=== PATIENT | female | born 1960 | race Caucasian/White ===

== ENCOUNTER 2018-09-10 15:23 | Observation (INO) | payer OTHER ==
[~2018-09-10] VITALS: Ht 170.2 cm; Wt 63.5 kg
[~2018-09-10 15:23] MED LIST: ABILIFY 2 MG; ALPR.5; ALPR.5 PO; AMIT75 PO; ASPI81CH PO; ASPI81EC; ATEN25; ATEN50; ATEN50 PO; Abilify2 MG PO; B Complex1 EAC2 PO; BENAML10/2; BUSP10; BUSP10 PO; CYCL10 PO; DICL75ER PO; DOCSEN PO; DOCUSATE; DULO30 PO; ERGO50000; FERR325 PO; FERROUS SULFATE 324; FLUO10; FLUO20 PO; FURO40; FURO40 PO; GABA300 PO; HYDACE10B; LACT10SY; LACT10SY PO; LEVE500; MAGCHL64ER PO; MELO7.5 PO; METO50; MULVITB&C; MULVITMINE; NITR100 PO; NORT10; NORT25 PO; NORT50 PO; NORTRIPTYLINE 50 MG; OXYC10TA19; SENNA; SERT100; SPIHYD; SPIR25 PO; SPIR50; TRAM50 PO; TRAZ50 PO; ZOLP10; ZOLP10 PO
[2018-09-10 17:08] LABS: BASOPHILS ABSOLUTE AUTO 0.03 K/mm3 (0.00-0.23); BASOPHILS PERCENT AUTO 0 % (0-2); EOSINOPHILS ABSOLUTE AUTO 0.03 K/mm3 (0.00-0.68); EOSINOPHILS PERCENT AUTO 0 % (0-6); Hematocrit 48.8 % (33.0-51.0); Hemoglobin 16.6 g/dL (11.5-16.0); IMMATURE GRAN ABSOLUTE AUTO 0.02 K/mm3 (0.00-0.10); IMMATURE GRAN PERCENT AUTO 0 % (0-1); LYMPHOCYTES ABSOLUTE AUTO 1.65 K/mm3 (0.84-5.20); LYMPHOCYTES PERCENT AUTO 22 % (21-46); MONOCYTES ABSOLUTE AUTO 0.38 K/mm3 (0.16-1.47); MONOCYTES PERCENT AUTO 5 % (4-13); Mean Corpuscular Volume 88 fL (80-100); Mean Platelet Volume 10.2 fL (9.1-12.4); NEUTROPHILS ABSOLUTE AUTO 5.32 K/mm3 (1.96-9.15); NEUTROPHILS PERCENT AUTO 72 % (41-73); Platelet Count 214 K/mm3 (150-400); RDW Coefficient Variation 12.5 % (11.7-14.2); RDW Standard Deviation 40.7 fL (35.1-46.3); Red Blood Cell Count 5.53 M/mm3 (3.80-5.20); White Blood Cell Count 7.43 K/mm3 (4.00-11.30)
[2018-09-10 17:28] LABS: Alanine Aminotransfer (ALT/SGP 29 U/L (12-78); Albumin, Blood 4.3 g/dL (3.4-5.0); Alk Phos 68 U/L (50-136); Anion Gap 14 mmol/L (6-16); Aspartate Aminotrans (AST/SGOT 28 U/L (12-37); Bilirubin, Total 1.1 mg/dL (0.1-1.0); Blood Urea Nitrogen 15 mg/dL (8-24); Bun/Creatinine Ratio 25.7 (12.0-20.0); CO2, Blood 22 mmol/L (21-32); Calcium, Blood 9.8 mg/dL (8.5-10.1); Chloride, Blood 99 mmol/L (98-108); Creatinine, Blood 0.58 mg/dL (0.40-1.00); Ethanol (Alcohol), Blood, Med <3 mg/dL; Globulin, Blood 4.5 g/dL (2.2-4.0); Glomerular Filtration Rate >60 (60-); Glucose, Blood 81 mg/dL (70-99); Potassium, Blood 3.4 mmol/L (3.5-5.5); Salicylate 8.5 mg/dL (2.8-20.0); Sodium, Blood 135 mmol/L (136-145); Total Protein, Blood 8.8 g/dL (6.4-8.2)
[2018-09-10 17:33] LABS: Thyroid Stimulating Hormone 0.342 uIU/mL (0.360-4.800)
[2018-09-10 17:41] LABS: Acetaminophen, Random <2.0 ug/mL (10.0-30.0)
[2018-09-11 06:50] LABS: Source, Urine Voided
[2018-09-11 06:54] LABS: Blood, Urine 2+ (Neg); Glucose Qualitative, Urine Neg (Neg); Ketones, Urine 4+ (Neg); Leukocyte Esterase, Urine 3+ (Neg); Nitrite, Urine Neg (Neg); Protein, Urine 2+ (Neg); Urobilinogen, Urine 3+ (Normal); pH, Urine 6.5 (5.0-8.0)
[2018-09-11 06:59] LABS: Appearance, Urine Cloudy (Clear); Bacteria Many /hpf; Bilirubin, Urine 1+ (Neg); Color, Urine Amber (P-Yellow); Red Blood Cells, Urine 0-2 /hpf (0-2); Squamous Epithelial Cells Few /hpf (Few); White Blood Cells, Urine 50-100 /hpf (0-5)
[2018-09-11 07:05] LABS: U Amphetamine Screen Not Detected; U Barbituate Screen Not Detected; U Benzodiazapine Screen Not Detected; U Buprenorphine Screen Not Detected; U Cannabinoids Screen DETECTED; U Cocaine Screen Not Detected; U Methadone Screen Not Detected; U Methamphetamine Screen Not Detected; U Opiates Screen Not Detected; U Oxycodone Screen Not Detected; U Phencyclidine Screen Not Detected; U Propoxyphene Screen Not Detected
== END 2018-09-11 22:55 | disposition home or self-care (01) ==
LOC: ER 15:23 → EOR 15:24 → ER 09-11 16:44 → EOR 09-11 16:44
PROVIDERS: Emergency Medicine; ADMIT Emergency Medicine
DX: F33.2 Major depressive disorder, recurrent severe without psychotic features (principal); I10 Essential (primary) hypertension; F17.210 Nicotine dependence, cigarettes, uncomplicated; R00.0 Tachycardia, unspecified; Z88.0 Allergy status to penicillin; Z88.5 Allergy status to narcotic agent; Z79.899 Other long term (current) drug therapy; Z86.73 Personal history of transient ischemic attack (TIA), and cerebral infarction without residual deficits; Z91.14 Patient's other noncompliance with medication regimen
CPT/HCPCS: 36415; 80053; 81001; 81025; 84439; 84443; 85025; 87077; 87086; 87186; 93005; 93010; 99285-25; G0378; G0480; Q3014

== ENCOUNTER 2018-11-24 11:57 | Inpatient (IN) | payer OTHER ==
[~2018-11-24] VITALS: Ht 170.2 cm; Wt 57.4 kg
[~2018-11-24 11:57] MED LIST changes: +ARIP10 PO; -Abilify2 MG PO; -METO50; +METO50 PO
[2018-11-24 13:02] LABS: BASOPHILS ABSOLUTE AUTO 0.01 K/mm3 (0.00-0.23); BASOPHILS PERCENT AUTO 0 % (0-2); EOSINOPHILS ABSOLUTE AUTO 0.01 K/mm3 (0.00-0.68); EOSINOPHILS PERCENT AUTO 0 % (0-6); Hematocrit 42.8 % (33.0-51.0); IMMATURE GRAN ABSOLUTE AUTO 0.02 K/mm3 (0.00-0.10); IMMATURE GRAN PERCENT AUTO 0 % (0-1); LYMPHOCYTES ABSOLUTE AUTO 0.69 K/mm3 (0.84-5.20); LYMPHOCYTES PERCENT AUTO 9 % (21-46); MONOCYTES ABSOLUTE AUTO 0.41 K/mm3 (0.16-1.47); MONOCYTES PERCENT AUTO 6 % (4-13); Mean Corpuscular HGB 30.7 pg (26.0-34.0); Mean Corpuscular Volume 88 fL (80-100); Mean Platelet Volume 10.9 fL (9.1-12.4); NEUTROPHILS ABSOLUTE AUTO 6.27 K/mm3 (1.96-9.15); NEUTROPHILS PERCENT AUTO 85 % (41-73); Platelet Count 152 K/mm3 (150-400); RDW Coefficient Variation 12.1 % (11.7-14.2); RDW Standard Deviation 39.2 fL (35.1-46.3); Red Blood Cell Count 4.88 M/mm3 (3.80-5.20); White Blood Cell Count 7.41 K/mm3 (4.00-11.30)
[2018-11-24 13:32] LABS: Alanine Aminotransfer (ALT/SGP 24 U/L (12-78); Albumin, Blood 3.9 g/dL (3.4-5.0); Alk Phos 54 U/L (50-136); Anion Gap 7 mmol/L (6-16); Aspartate Aminotrans (AST/SGOT 20 U/L (12-37); Bilirubin, Total 1.3 mg/dL (0.1-1.0); Blood Urea Nitrogen 15 mg/dL (8-24); Bun/Creatinine Ratio 18.6 (12.0-20.0); CO2, Blood 26 mmol/L (21-32); Calcium, Blood 9.4 mg/dL (8.5-10.1); Chloride, Blood 103 mmol/L (98-108); Creatinine, Blood 0.81 mg/dL (0.40-1.00); Globulin, Blood 3.9 g/dL (2.2-4.0); Glomerular Filtration Rate >60 (60-); Glucose, Blood 138 mg/dL (70-99); Potassium, Blood 3.5 mmol/L (3.5-5.5); Sodium, Blood 136 mmol/L (136-145); Total Protein, Blood 7.8 g/dL (6.4-8.2)
[2018-11-24] MEDS ORDERED: Prinivil10 MG PO (16:02)
[2018-11-24] MEDS ORDERED: ESCI10 PO (16:06)
[2018-11-24] MEDS ORDERED: TRAZ150T57 (16:07)
[2018-11-24] MEDS ORDERED: PRAV20 PO (16:08)
[2018-11-24 20:38] LABS: U Amphetamine Screen Not Detected; U Barbituate Screen Not Detected; U Benzodiazapine Screen Not Detected; U Buprenorphine Screen Not Detected; U Cannabinoids Screen DETECTED; U Cocaine Screen Not Detected; U Methadone Screen Not Detected; U Methamphetamine Screen Not Detected; U Opiates Screen Not Detected; U Oxycodone Screen Not Detected; U Phencyclidine Screen Not Detected; U Propoxyphene Screen Not Detected
--- NOTE | 2018-11-25 06:39 | NUR ---
SHIFT SUMMARY PT ADMITTED FOR LEFT FEMORAL NECK FX. HUMPHREY CONSULTED FOR POTENTIAL SURGERY TODAY. PT HAS AN 18G IN PLACE, NPO SINCE MIDNIGHT, SURGICAL PACKET STARTED ON CHART. JOHNSON PLACED UPON ADMISSION TO FLOOR AND UA SENT. URINE IS DARK, MAINTENENCE FLUIDS RUNNING. TELE WAS SINUS CHINEDU TO NSR OVERNIGHT. MEDICATED FOR PAIN PER EMAR. WILL CTM UNTIL PASS TO NEXT SHIFT.
[2018-11-25 07:45] LABS: BASOPHILS ABSOLUTE AUTO 0.02 K/mm3 (0.00-0.23); BASOPHILS PERCENT AUTO 0 % (0-2); EOSINOPHILS ABSOLUTE AUTO 0.12 K/mm3 (0.00-0.68); EOSINOPHILS PERCENT AUTO 2 % (0-6); Hematocrit 38.3 % (33.0-51.0); IMMATURE GRAN ABSOLUTE AUTO 0.01 K/mm3 (0.00-0.10); IMMATURE GRAN PERCENT AUTO 0 % (0-1); LYMPHOCYTES ABSOLUTE AUTO 1.49 K/mm3 (0.84-5.20); LYMPHOCYTES PERCENT AUTO 27 % (21-46); MONOCYTES ABSOLUTE AUTO 0.45 K/mm3 (0.16-1.47); MONOCYTES PERCENT AUTO 8 % (4-13); Mean Corpuscular HGB 29.8 pg (26.0-34.0); Mean Corpuscular HGB Conc 33.9 g/dL (31.5-36.5); Mean Corpuscular Volume 88 fL (80-100); Mean Platelet Volume 10.5 fL (9.1-12.4); NEUTROPHILS ABSOLUTE AUTO 3.49 K/mm3 (1.96-9.15); NEUTROPHILS PERCENT AUTO 62 % (41-73); Platelet Count 117 K/mm3 (150-400); RDW Coefficient Variation 12.4 % (11.7-14.2); RDW Standard Deviation 39.9 fL (35.1-46.3); Red Blood Cell Count 4.36 M/mm3 (3.80-5.20); White Blood Cell Count 5.58 K/mm3 (4.00-11.30)
[2018-11-25 08:02] LABS: Alanine Aminotransfer (ALT/SGP 20 U/L (12-78); Albumin, Blood 3.1 g/dL (3.4-5.0); Albumin/Globulin Ratio 0.9 (0.8-1.8); Alk Phos 44 U/L (50-136); Anion Gap 9 mmol/L (6-16); Aspartate Aminotrans (AST/SGOT 13 U/L (12-37); Bilirubin, Total 1.1 mg/dL (0.1-1.0); Blood Urea Nitrogen 12 mg/dL (8-24); Bun/Creatinine Ratio 20.3 (12.0-20.0); CO2, Blood 25 mmol/L (21-32); Calcium, Blood 8.6 mg/dL (8.5-10.1); Chloride, Blood 106 mmol/L (98-108); Creatinine, Blood 0.59 mg/dL (0.40-1.00); Globulin, Blood 3.4 g/dL (2.2-4.0); Glomerular Filtration Rate >60 (60-); Glucose, Blood 104 mg/dL (70-99); Potassium, Blood 3.2 mmol/L (3.5-5.5); Sodium, Blood 140 mmol/L (136-145); Total Protein, Blood 6.5 g/dL (6.4-8.2)
[2018-11-25 11:53] LABS: Source, Urine Catheter
[2018-11-25 12:01] LABS: Appearance, Urine Hazy (Clear); Blood, Urine 1+ (Neg); Color, Urine Amber (P-Yellow); Glucose Qualitative, Urine Neg (Neg); Ketones, Urine 1+ (Neg); Leukocyte Esterase, Urine 2+ (Neg); Nitrite, Urine Pos (Neg); Protein, Urine 2+ (Neg); Specific Gravity, Urine 1.015 (1.003-1.022); Urobilinogen, Urine 4+ (Normal); pH, Urine 6.5 (5.0-8.0)
[2018-11-25 12:11] LABS: Bilirubin, Urine 1+ (Neg)
[2018-11-25 12:13] LABS: Red Blood Cells, Urine 0-2 /hpf (0-2)
[2018-11-25 12:14] LABS: Bacteria Many /hpf; Squamous Epithelial Cells Few /hpf (Few)
[2018-11-25 12:55] LABS: Anion Gap 9 mmol/L (6-16); Blood Urea Nitrogen 10 mg/dL (8-24); CO2, Blood 25 mmol/L (21-32); Calcium, Blood 8.4 mg/dL (8.5-10.1); Chloride, Blood 106 mmol/L (98-108); Creatinine, Blood 0.59 mg/dL (0.40-1.00); Glomerular Filtration Rate >60 (60-); Glucose, Blood 129 mg/dL (70-99); Sodium, Blood 140 mmol/L (136-145)
--- NOTE | 2018-11-25 15:40 | NUR ---
PATIENT TO DAY SURGERY AT THIS TIME.
--- NOTE | 2018-11-25 15:43 | NUR ---
Patient confirms NPO status and agrees with scheduled surgery. History, Chart, Medications and Allergies reviewed before start of procedure. Lungs clear T/O to Auscultation.
--- NOTE | 2018-11-25 16:07 | NUR ---
PT HAVING PAIN 6/10, MONALISA HOSE AND COMPRESSION SLEEVE NOT APPLIED AT THIS TIME. WILL NOTIFY CIRCULATING NURSE.
--- NOTE | 2018-11-25 18:17 | NUR ---
11/25/18 1816 Maribel Perez PT ENTERED OR WITH JOHNSON CATHETER IN PLACE
--- NOTE | 2018-11-25 23:48 | NUR ---
2315: RECEIVED REPORT FROM PREVIOUS RN AND ASSUMED CARE OF PT. BED IN LOW POSITION, ALARMED, AND CALL LIGHT IN REACH.
[2018-11-26 04:02] LABS: BASOPHILS ABSOLUTE AUTO 0.01 K/mm3 (0.00-0.23); BASOPHILS PERCENT AUTO 0 % (0-2); EOSINOPHILS PERCENT AUTO 0 % (0-6); Hematocrit 34.5 % (33.0-51.0); Hemoglobin 11.8 g/dL (11.5-16.0); IMMATURE GRAN ABSOLUTE AUTO 0.03 K/mm3 (0.00-0.10); IMMATURE GRAN PERCENT AUTO 0 % (0-1); LYMPHOCYTES ABSOLUTE AUTO 0.45 K/mm3 (0.84-5.20); LYMPHOCYTES PERCENT AUTO 6 % (21-46); MONOCYTES ABSOLUTE AUTO 0.21 K/mm3 (0.16-1.47); MONOCYTES PERCENT AUTO 3 % (4-13); Mean Corpuscular HGB 30.3 pg (26.0-34.0); Mean Corpuscular HGB Conc 34.2 g/dL (31.5-36.5); Mean Corpuscular Volume 89 fL (80-100); Mean Platelet Volume 10.8 fL (9.1-12.4); NEUTROPHILS ABSOLUTE AUTO 7.21 K/mm3 (1.96-9.15); NEUTROPHILS PERCENT AUTO 91 % (41-73); Platelet Count 129 K/mm3 (150-400); RDW Coefficient Variation 12.1 % (11.7-14.2); RDW Standard Deviation 39.2 fL (35.1-46.3); Red Blood Cell Count 3.89 M/mm3 (3.80-5.20); White Blood Cell Count 7.91 K/mm3 (4.00-11.30)
[2018-11-26 04:17] LABS: Anion Gap 6 mmol/L (6-16); Blood Urea Nitrogen 11 mg/dL (8-24); Bun/Creatinine Ratio 17.3 (12.0-20.0); CO2, Blood 26 mmol/L (21-32); Calcium, Blood 8.6 mg/dL (8.5-10.1); Chloride, Blood 106 mmol/L (98-108); Creatinine, Blood 0.64 mg/dL (0.40-1.00); Glomerular Filtration Rate >60 (60-); Glucose, Blood 136 mg/dL (70-99); Potassium, Blood 4.5 mmol/L (3.5-5.5); Sodium, Blood 138 mmol/L (136-145)
--- NOTE | 2018-11-26 07:33 | NUR ---
SUMMARY: POD [address] REPAIR [address] HUMPHREY. VSS, AFEBRILE, ROOM AIR, TELEMETRY SINUS TACHYCARDIC 90-100'S. POOR PO INTAKE AND IV FLUIDS LEFT RUNNING THIS SHIFT. JOHNSON REMAINS PATENT CLOUDY, FOUL ODOR, MARTHA URINE AND DAY SHIFT TO F/U WITH UTI ANTIBIOTIC ORDERS. PT PAIN WELL CONTROLLED WITH 1 TAB NORCO. ANTICIPATE PT/OT AND ANTIBIOTICS FOR UTI TODAY.
--- NOTE | 2018-11-26 14:38 | NUR ---
PATIENT UP TODAY WITH SBA, FWW AND GB. STEADY. DENIES PAIN AT THIS TIME.
--- NOTE | 2018-11-26 15:34 | NUR ---
CARE ASSUMED CARE ASSUMED OF THIS PT AT APPROXIMATELY 1515. PT ALERT AND ORIENTED. PT REPORTS PAIN IS WELL MANAGED. PT ENCOURAGED TO DRINK FLUIDS. JOHNSON REMOVED THIS AM PER JAS RN, PT HAS NOT VOIDED YET. BLADDER SCAN SHOWED 35ML IN BLADDER. PT ENCOURAGED TO DRINK FLUIDS. PT PROVIDED WITH WATER AND DIET PEPSI TO ENCOURAGE PO INTAKE. VSS. WILL MONITOR UNTIL REPORT TO ONCOMING RN.
--- NOTE | 2018-11-26 19:34 | NUR ---
SHIFT SUMMARY PAIN HAS BEEN MINIMAL SINCE CARE WAS ASSUMED OF PT. PT HAS BEEN ALERT AND ORIENTED. JOHNSON WAS REMOVED THIS AM PER JAS RESENDIZ; PT HAS BEEN UNABLE TO VOID SINCE THAT TIME. FLUIDS ENCOURAGED T/O DAY. ASSISTED TO THE BATHROOM TO ATTEMPT TO VOID FOR BLADDER SCAN OF 562ML THIS EVENING. VSS. REPORT GIVEN TO JERMAINE RESENDIZ.
--- NOTE | 2018-11-27 05:48 | NUR ---
SHIFT SUMMARY: PT POD #2 FOR RT MAUREEN. AQUACEL DRESSING INTACT WITHOUT DRAINAGE. PAIN MANAGED WITH SCHEDULED TORADOL AND TYLENOL. PT REFUSING PAIN MEDICATION T/O SHIFT. HAVING A DIFFICULT TIME VOIDING SINCE REMOVAL OF JOHNSON CATHETER YESTERDAY. VOIDED TWICE THIS SHIFT. BLADDER SCAN SHOWED >889. STRAIGHT CATHETER INSERTED WITH 1000 ML OUT. PT AMBULATING WITH ONE ASSIST AND FWW+GB. PLAN FOR PT TO DISCHARGE TO SNF THIS WEEKEND.
--- NOTE | 2018-11-27 10:35 | NUR ---
THERAPY RECENTLY WORKED WITH PT.
--- NOTE | 2018-11-27 11:32 | NUR ---
DR Yen FREEMAN HERE TO SEE PT.
--- NOTE | 2018-11-27 13:36 | NUR ---
DISCHARGE MED REC CLARIFIED WITH DR Yen FREEMAN. SEE ORDERS.
--- NOTE | 2018-11-27 13:41 | NUR ---
PT REPORTED TO HAVE SMALL MUCOUSY LOOKING BM.
--- NOTE | 2018-11-27 15:59 | NUR ---
PT RECENTLY TO [facility] BY TRANSPORT. PT BEEN EATING AND DRINKING WELL. PT VOIDING. PT HAD BM'S TODAY. PT IV OUT WNL. REPORT BEEN GIVEN TO LETA AT [facility] BELONGINGS, ICE MACHINE, SCRIPT, AND DRESSINGS SENT WITH PT.
== END 2018-11-27 16:00 | DRG 470 ==
LOC: ER 11:57 → SURS 15:23
PROVIDERS: Emergency Medicine; Orthopaedic Surgery; ADMIT Family Medicine
PROC: 0SRB0JZ Replacement of Left Hip Joint with Synthetic Substitute, Open Approach (ICD-10-PCS; principal; 2018-11-25 15:40)
DX: S72.002A Fracture of unspecified part of neck of left femur, initial encounter for closed fracture (principal); N39.0 Urinary tract infection, site not specified; G40.909 Epilepsy, unspecified, not intractable, without status epilepticus; I10 Essential (primary) hypertension; W19.XXXA Unspecified fall, initial encounter; F10.20 Alcohol dependence, uncomplicated; Z86.73 Personal history of transient ischemic attack (TIA), and cerebral infarction without residual deficits; F17.210 Nicotine dependence, cigarettes, uncomplicated; I45.81 Long QT syndrome; F31.9 Bipolar disorder, unspecified; F32.9 Major depressive disorder, single episode, unspecified; G62.1 Alcoholic polyneuropathy; R00.1 Bradycardia, unspecified; T50.6X5A Adverse effect of antidotes and chelating agents, initial encounter; E78.00 Pure hypercholesterolemia, unspecified
CPT/HCPCS: 36415; 70450; 71045; 72170; 73502; 80048; 80053; 81001; 84484; 85025; 87077; 87086; 87186; 93005; 93010; 93306; 96374; 96375; 96376; 97110; 97116; 97161; 97166; 97530; 97535; 99285-25; C1776; C9113; G0480; J0171; J0690; J0735; J1100; J1885; J2270; J2370; J2405; J2795; J3010; J3480; J7030; J7120; Q0163

== ENCOUNTER → 2019-09-23 | Outpatient (CLI) | payer OTHER ==
[~2019-09-23] MED LIST changes: +ESCI10 PO; +PRAV20 PO; +Prinivil10 MG PO; +TRAZ150T57
[2019-09-26 15:08] LABS: HPV 16 Negative (Negative); HPV 18 Negative (Negative); HPV OTHER HR TYPES Negative (Negative)
== END ==
LOC: LAB 18:24 → LAB SHORT 18:24
PROVIDERS: Student in an Organized Health Care Education/Training Program
DX: Z01.419 Encounter for gynecological examination (general) (routine) without abnormal findings (principal)
CPT/HCPCS: 87624; G0145

== ENCOUNTER 2020-03-11 07:48 | Inpatient (IN) | payer OTHER ==
[~2020-03-11] VITALS: Ht 170.2 cm; Wt 52.7 kg
[~2020-03-11 07:48] MED LIST changes: -DULO30 PO; +DULO60 PO
[2020-03-11 08:38] LABS: BASOPHILS ABSOLUTE AUTO 0.04 K/mm3 (0.00-0.23); BASOPHILS PERCENT AUTO 1 % (0-2); EOSINOPHILS ABSOLUTE AUTO 0.09 K/mm3 (0.00-0.68); EOSINOPHILS PERCENT AUTO 2 % (0-6); Hematocrit 41.8 % (33.0-51.0); Hemoglobin 14.4 g/dL (11.5-16.0); IMMATURE GRAN ABSOLUTE AUTO 0.02 K/mm3 (0.00-0.10); IMMATURE GRAN PERCENT AUTO 0 % (0-1); LYMPHOCYTES ABSOLUTE AUTO 1.01 K/mm3 (0.84-5.20); LYMPHOCYTES PERCENT AUTO 18 % (21-46); MONOCYTES ABSOLUTE AUTO 0.33 K/mm3 (0.16-1.47); MONOCYTES PERCENT AUTO 6 % (4-13); Mean Corpuscular HGB 33.9 pg (26.0-34.0); Mean Corpuscular HGB Conc 34.4 g/dL (31.5-36.5); Mean Corpuscular Volume 98 fL (80-100); Mean Platelet Volume 9.2 fL (9.1-12.4); NEUTROPHILS ABSOLUTE AUTO 4.01 K/mm3 (1.96-9.15); NEUTROPHILS PERCENT AUTO 73 % (41-73); Platelet Count 239 K/mm3 (150-400); RDW Coefficient Variation 12.5 % (11.7-14.2); RDW Standard Deviation 45.1 fL (35.1-46.3); Red Blood Cell Count 4.25 M/mm3 (3.80-5.20)
[2020-03-11 09:00] LABS: Alanine Aminotransfer (ALT/SGP 56 U/L (12-78); Albumin, Blood 3.6 g/dL (3.4-5.0); Albumin/Globulin Ratio 0.8 (0.8-1.8); Alk Phos 79 U/L (50-136); Anion Gap 11 mmol/L (6-16); Aspartate Aminotrans (AST/SGOT 54 U/L (12-37); Bilirubin, Total 0.7 mg/dL (0.1-1.0); Blood Urea Nitrogen 12 mg/dL (8-24); Bun/Creatinine Ratio 19.6 (12.0-20.0); CO2, Blood 25 mmol/L (21-32); Calcium, Blood 9.4 mg/dL (8.5-10.1); Chloride, Blood 105 mmol/L (98-108); Creatinine, Blood 0.61 mg/dL (0.40-1.00); Globulin, Blood 4.4 g/dL (2.2-4.0); Glomerular Filtration Rate >60 (60-); Glucose, Blood 112 mg/dL (70-99); Potassium, Blood 2.9 mmol/L (3.5-5.5); Sodium, Blood 141 mmol/L (136-145); Troponin I <0.015 ng/mL (0.000-0.040)
[2020-03-11 13:41] LABS: Source, Urine Clean Catch
[2020-03-11 13:46] LABS: Appearance, Urine Hazy (Clear); Bilirubin, Urine Neg (Neg); Blood, Urine 1+ (Neg); Color, Urine Yellow (P-Yellow); Glucose Qualitative, Urine Neg (Neg); Ketones, Urine Neg (Neg); Leukocyte Esterase, Urine Neg (Neg); Nitrite, Urine Neg (Neg); Protein, Urine Neg (Neg); Urobilinogen, Urine NORM (Normal)
[2020-03-11 13:54] LABS: Amorphous Light (0-Heavy); Bacteria Rare /hpf; Calcium Oxalate Crystals Rare /hpf; Red Blood Cells, Urine 0-2 /hpf (0-2); Squamous Epithelial Cells Few /hpf (Few)
--- NOTE | 2020-03-11 19:41 | NUR ---
SHIFT SUMMARY ALERT AND ORIENTED PT, MOANING CONSTANTLY. ARRIVED TO UNIT AT 1835. ZOFRAN GIVEN DUE TO NAUSEA, NO EMESIS. LR AT 125CC STARTED. REPORT GIVEN IN SBAR FORMAT TO NIGHT RN.
[2020-03-11] MEDS ORDERED: Naprosyn500 MG (21:00)
[2020-03-11] MEDS ORDERED: Prozac40 MG (21:01)
[2020-03-11] MEDS ORDERED: QUET100 (21:05)
[2020-03-11] MEDS ORDERED: QUET300 (21:07)
[2020-03-11] MEDS ORDERED: K-Dur 20 meq T20 MEQ PO (21:08)
[2020-03-11] MEDS ORDERED: OMEP20ER PO (21:09)
[2020-03-12 05:32] LABS: BASOPHILS ABSOLUTE AUTO 0.04 K/mm3 (0.00-0.23); BASOPHILS PERCENT AUTO 1 % (0-2); EOSINOPHILS ABSOLUTE AUTO 0.02 K/mm3 (0.00-0.68); EOSINOPHILS PERCENT AUTO 0 % (0-6); Hematocrit 39.6 % (33.0-51.0); Hemoglobin 13.9 g/dL (11.5-16.0); IMMATURE GRAN ABSOLUTE AUTO 0.03 K/mm3 (0.00-0.10); IMMATURE GRAN PERCENT AUTO 0 % (0-1); LYMPHOCYTES ABSOLUTE AUTO 1.45 K/mm3 (0.84-5.20); LYMPHOCYTES PERCENT AUTO 17 % (21-46); MONOCYTES ABSOLUTE AUTO 0.85 K/mm3 (0.16-1.47); MONOCYTES PERCENT AUTO 10 % (4-13); Mean Corpuscular HGB 33.9 pg (26.0-34.0); Mean Corpuscular HGB Conc 35.1 g/dL (31.5-36.5); Mean Corpuscular Volume 97 fL (80-100); Mean Platelet Volume 9.3 fL (9.1-12.4); NEUTROPHILS ABSOLUTE AUTO 6.26 K/mm3 (1.96-9.15); NEUTROPHILS PERCENT AUTO 72 % (41-73); Platelet Count 226 K/mm3 (150-400); RDW Coefficient Variation 12.4 % (11.7-14.2); RDW Standard Deviation 44.3 fL (35.1-46.3); White Blood Cell Count 8.65 K/mm3 (4.00-11.30)
[2020-03-12 05:57] LABS: Alanine Aminotransfer (ALT/SGP 58 U/L (12-78); Albumin, Blood 2.9 g/dL (3.4-5.0); Albumin/Globulin Ratio 0.8 (0.8-1.8); Alk Phos 76 U/L (50-136); Anion Gap 6 mmol/L (6-16); Aspartate Aminotrans (AST/SGOT 60 U/L (12-37); Bilirubin, Total 1.2 mg/dL (0.1-1.0); Blood Urea Nitrogen 10 mg/dL (8-24); Bun/Creatinine Ratio 15.1 (12.0-20.0); CO2, Blood 29 mmol/L (21-32); Chloride, Blood 100 mmol/L (98-108); Creatinine, Blood 0.66 mg/dL (0.40-1.00); Globulin, Blood 3.7 g/dL (2.2-4.0); Glomerular Filtration Rate >60 (60-); Glucose, Blood 116 mg/dL (70-99); Magnesium, Blood 1.8 mg/dL (1.6-2.4); Potassium, Blood 2.9 mmol/L (3.5-5.5); Sodium, Blood 135 mmol/L (136-145); Total Protein, Blood 6.6 g/dL (6.4-8.2)
--- NOTE | 2020-03-12 08:40 | NUR ---
LAY BROTHER SUMMARY PT A/O X4. SLEPT ON AND OFF OVERNIGHT. PAIN MEDS GIVEN FREQUENTLY THROUGHOUT THE NIGHT. PT REPORTS PAIN IN RIGHT UPPER QUAD OF ABD. SHE DENIES NAUSEA. VSS. REPORT GIVEN TO ONCOMING RN. LORRIE DUPREE SR IN THE 'S. VSS.
--- NOTE | 2020-03-12 11:42 | NUR ---
Shift Summary A/Ox4, 1p SBA to bedside commode. Ino transferred to [facility]. Report given to receiving ASTRID Hughes @ [phone]. Patient placed in room 7105 at [facility]. All personal belongings sent with patient. Neighbor notified by patient of transfer, patient stated no family member to notify. IV pump given to [facility] for transport along with 2 bags of K-rider and 1 bag of LR. Fentanyl and Zofran given for 10/10 pain and nausea. Transfer packet given to transport.
== END 2020-03-12 11:29 | disposition short-term general hospital (02) | DRG 444 ==
LOC: ER 07:48 → ERHOLD 07:49 → MEDS 18:20 → ENPENDDIS 03-12 10:39 → MEDS 03-12 11:29
PROVIDERS: Emergency Medicine; Surgery; ADMIT Internal Medicine
DX: K80.42 Calculus of bile duct with acute cholecystitis without obstruction (principal); K85.10 Biliary acute pancreatitis without necrosis or infection; I16.1 Hypertensive emergency; E44.0 Moderate protein-calorie malnutrition; Z68.1 Body mass index [BMI] 19.9 or less, adult; K82.1 Hydrops of gallbladder; K70.30 Alcoholic cirrhosis of liver without ascites; F17.210 Nicotine dependence, cigarettes, uncomplicated; Z66 Do not resuscitate; E87.6 Hypokalemia; I16.0 Hypertensive urgency; Z86.73 Personal history of transient ischemic attack (TIA), and cerebral infarction without residual deficits; I10 Essential (primary) hypertension; Z20.828 Contact with and (suspected) exposure to other viral communicable diseases
CPT/HCPCS: 36415; 74177; 76705; 80053; 81001; 83690; 83735; 84484; 85025; 93005; 93010; 96361; 96365-59; 96372; 96375; 96376; 99285-25; G0378; J1170; J1650; J1956; J2405; J2550; J3010; J3480; J7030; J7120; Q9967; U0002

== ENCOUNTER 2020-11-04 12:11 | Emergency (ER) | payer OTHER ==
[~2020-11-04] VITALS: Ht 170.2 cm; Wt 63.5 kg
[~2020-11-04 12:11] MED LIST changes: +K-Dur 20 meq T20 MEQ PO; +Naprosyn500 MG; +OMEP20ER PO; +Prozac40 MG; +QUET100; +QUET300
[2020-11-04 13:01] LABS: BASOPHILS ABSOLUTE AUTO 0.03 K/mm3 (0.00-0.23); BASOPHILS PERCENT AUTO 1 % (0-2); EOSINOPHILS ABSOLUTE AUTO 0.01 K/mm3 (0.00-0.68); EOSINOPHILS PERCENT AUTO 0 % (0-6); Hematocrit 37.5 % (33.0-51.0); Hemoglobin 12.7 g/dL (11.5-16.0); IMMATURE GRAN ABSOLUTE AUTO 0.01 K/mm3 (0.00-0.10); IMMATURE GRAN PERCENT AUTO 0 % (0-1); LYMPHOCYTES ABSOLUTE AUTO 0.79 K/mm3 (0.84-5.20); LYMPHOCYTES PERCENT AUTO 21 % (21-46); MONOCYTES ABSOLUTE AUTO 0.26 K/mm3 (0.16-1.47); MONOCYTES PERCENT AUTO 7 % (4-13); Mean Corpuscular HGB Conc 33.9 g/dL (31.5-36.5); Mean Corpuscular Volume 92 fL (80-100); Mean Platelet Volume 9.1 fL (9.1-12.4); NEUTROPHILS ABSOLUTE AUTO 2.63 K/mm3 (1.96-9.15); NEUTROPHILS PERCENT AUTO 70 % (41-73); Platelet Count 178 K/mm3 (150-400); RDW Coefficient Variation 16.2 % (11.7-14.2); White Blood Cell Count 3.73 K/mm3 (4.00-11.30)
[2020-11-04 13:18] LABS: International Normalized Ratio 1.11; Prothrombin Time Results 11.9 Sec (9.7-11.5)
[2020-11-04 13:29] LABS: Alanine Aminotransfer (ALT/SGP 45 U/L (12-78); Albumin, Blood 3.4 g/dL (3.4-5.0); Alk Phos 73 U/L (50-136); Anion Gap 15 mmol/L (6-16); Aspartate Aminotrans (AST/SGOT 96 U/L (12-37); Bilirubin, Total 1.4 mg/dL (0.1-1.0); Blood Urea Nitrogen 13 mg/dL (8-24); Bun/Creatinine Ratio 21.2 (12.0-20.0); CO2, Blood 21 mmol/L (21-32); Calcium, Blood 8.5 mg/dL (8.5-10.1); Chloride, Blood 100 mmol/L (98-108); Creatinine, Blood 0.61 mg/dL (0.40-1.00); Ethanol (Alcohol), Blood, Med 12 mg/dL; Free Thyroxine 1.16 ng/dL (0.70-1.60); Globulin, Blood 3.4 g/dL (2.2-4.0); Glomerular Filtration Rate >60 (60-); Glucose, Blood 101 mg/dL (70-99); Magnesium, Blood 1.4 mg/dL (1.6-2.4); Potassium, Blood 2.7 mmol/L (3.5-5.5); Sodium, Blood 136 mmol/L (136-145); Total Protein, Blood 6.8 g/dL (6.4-8.2)
[2020-11-04] MEDS ORDERED: POTA20PAC PO (13:34)
[2020-11-04] MEDS ORDERED: NAPR500ERA PO (13:36)
[2020-11-04] MEDS ORDERED: Prozac40 MG PO (13:36)
[2020-11-04] MEDS ORDERED: METO25ER PO (13:36)
[2020-11-04] MEDS ORDERED: GABA300 PO (13:37)
[2020-11-04] MEDS ORDERED: ZOLP10 PO (13:37)
[2020-11-04] MEDS ORDERED: BUSP5 PO (13:37)
[2020-11-04] MEDS ORDERED: THERA-D2000 UNIT PO (13:38)
[2020-11-04] MEDS ORDERED: TRAZ50 PO (13:38)
[2020-11-04] MEDS ORDERED: TRAM50 PO (13:39)
[2020-11-04] MEDS ORDERED: CYCL10 PO (13:39)
== END 2020-11-04 14:38 | disposition home or self-care (01) ==
LOC: ER 12:11 → EDBD 12:11 → ER 14:38
PROVIDERS: Emergency Medicine
DX: R56.9 Unspecified convulsions (principal); E87.6 Hypokalemia; I10 Essential (primary) hypertension; F17.200 Nicotine dependence, unspecified, uncomplicated; Z79.899 Other long term (current) drug therapy
CPT/HCPCS: 70450; 70496; 70498; 80053; 82947; 83735; 84146; 84439; 84443; 85025; 85610; 93005; 93010; 96374; 96375; 99285-25; A9270; G0480; J2060; Q9967

== ENCOUNTER 2021-01-09 21:18 | Emergency (ER) | payer OTHER ==
[~2021-01-09] VITALS: Ht 170.2 cm; Wt 54.4 kg
[~2021-01-09 21:18] MED LIST changes: +BUSP5 PO; +METO25ER PO; +NAPR500ERA PO; +POTA20PAC PO; +Prozac40 MG PO; +THERA-D2000 UNIT PO
[2021-01-09 22:52] LABS: BASOPHILS ABSOLUTE AUTO 0.03 K/mm3 (0.00-0.23); BASOPHILS PERCENT AUTO 1 % (0-2); EOSINOPHILS ABSOLUTE AUTO 0.19 K/mm3 (0.00-0.68); EOSINOPHILS PERCENT AUTO 4 % (0-6); Hematocrit 38.8 % (33.0-51.0); Hemoglobin 13.1 g/dL (11.5-16.0); IMMATURE GRAN ABSOLUTE AUTO 0.01 K/mm3 (0.00-0.10); IMMATURE GRAN PERCENT AUTO 0 % (0-1); LYMPHOCYTES ABSOLUTE AUTO 1.96 K/mm3 (0.84-5.20); LYMPHOCYTES PERCENT AUTO 41 % (21-46); MONOCYTES ABSOLUTE AUTO 0.19 K/mm3 (0.16-1.47); MONOCYTES PERCENT AUTO 4 % (4-13); Mean Corpuscular HGB 33.5 pg (26.0-34.0); Mean Corpuscular HGB Conc 33.8 g/dL (31.5-36.5); Mean Corpuscular Volume 99 fL (80-100); NEUTROPHILS ABSOLUTE AUTO 2.36 K/mm3 (1.96-9.15); NEUTROPHILS PERCENT AUTO 50 % (41-73); Platelet Count 207 K/mm3 (150-400); RDW Coefficient Variation 13.4 % (11.7-14.2); RDW Standard Deviation 49.6 fL (35.1-46.3); Red Blood Cell Count 3.91 M/mm3 (3.80-5.20); White Blood Cell Count 4.74 K/mm3 (4.00-11.30)
[2021-01-09 23:10] LABS: Alanine Aminotransfer (ALT/SGP 34 U/L (12-78); Albumin, Blood 3.9 g/dL (3.4-5.0); Albumin/Globulin Ratio 0.9 (0.8-1.8); Alk Phos 100 U/L (50-136); Anion Gap 6 mmol/L (6-16); Aspartate Aminotrans (AST/SGOT 44 U/L (12-37); Bilirubin, Total 0.4 mg/dL (0.1-1.0); Blood Urea Nitrogen 13 mg/dL (8-24); Bun/Creatinine Ratio 17.6 (12.0-20.0); CO2, Blood 28 mmol/L (21-32); Calcium, Blood 9.3 mg/dL (8.5-10.1); Chloride, Blood 106 mmol/L (98-108); Creatinine, Blood 0.74 mg/dL (0.40-1.00); Ethanol (Alcohol), Blood, Med 193 mg/dL; Globulin, Blood 4.3 g/dL (2.2-4.0); Glomerular Filtration Rate >60 (60-); Glucose, Blood 120 mg/dL (70-99); Potassium, Blood 3.1 mmol/L (3.5-5.5); Sodium, Blood 140 mmol/L (136-145); Total Protein, Blood 8.2 g/dL (6.4-8.2)
[2021-01-10 00:04] LABS: Source, Urine Clean Catch
[2021-01-10 00:08] LABS: Appearance, Urine Clear (Clear); Bilirubin, Urine Neg (Neg); Blood, Urine 4+ (Neg); Color, Urine Yellow (P-Yellow); Glucose Qualitative, Urine Neg (Neg); Ketones, Urine Neg (Neg); Leukocyte Esterase, Urine Neg (Neg); Nitrite, Urine Neg (Neg); Protein, Urine Neg (Neg); Urobilinogen, Urine NORM (Normal)
[2021-01-10 00:13] LABS: White Blood Cells, Urine 0-2 /hpf (0-5)
[2021-01-10 00:14] LABS: Bacteria Many /hpf; Squamous Epithelial Cells Few /hpf (Few)
[2021-01-10 00:18] LABS: U Amphetamine Screen Not Detected; U Barbituate Screen Not Detected; U Benzodiazapine Screen Not Detected; U Buprenorphine Screen Not Detected; U Cannabinoids Screen DETECTED; U Cocaine Screen Not Detected; U Methadone Screen Not Detected; U Methamphetamine Screen Not Detected; U Opiates Screen Not Detected; U Oxycodone Screen DETECTED; U Phencyclidine Screen Not Detected; U Propoxyphene Screen Not Detected
== END 2021-01-10 00:42 | disposition home or self-care (01) ==
LOC: ER 21:18
PROVIDERS: Physician Assistant
DX: R55 Syncope and collapse (principal); G47.00 Insomnia, unspecified; E87.6 Hypokalemia; Z79.899 Other long term (current) drug therapy
CPT/HCPCS: 36415; 80053; 81001; 82140; 85025; 93005; 93010; 99284-25; A9270; G0480

== ENCOUNTER 2021-01-10 22:37 | Emergency (ER) | payer OTHER ==
[~2021-01-10] VITALS: Ht 170.2 cm; Wt 55.3 kg
[2021-01-10 22:57] LABS: BASOPHILS ABSOLUTE AUTO 0.04 K/mm3 (0.00-0.23); BASOPHILS PERCENT AUTO 1 % (0-2); EOSINOPHILS PERCENT AUTO 5 % (0-6); Hematocrit 34.9 % (33.0-51.0); Hemoglobin 11.7 g/dL (11.5-16.0); IMMATURE GRAN ABSOLUTE AUTO 0.01 K/mm3 (0.00-0.10); IMMATURE GRAN PERCENT AUTO 0 % (0-1); LYMPHOCYTES ABSOLUTE AUTO 1.71 K/mm3 (0.84-5.20); LYMPHOCYTES PERCENT AUTO 43 % (21-46); MONOCYTES ABSOLUTE AUTO 0.33 K/mm3 (0.16-1.47); MONOCYTES PERCENT AUTO 8 % (4-13); Mean Corpuscular HGB 33.4 pg (26.0-34.0); Mean Corpuscular HGB Conc 33.5 g/dL (31.5-36.5); Mean Corpuscular Volume 100 fL (80-100); Mean Platelet Volume 9.1 fL (9.1-12.4); NEUTROPHILS ABSOLUTE AUTO 1.67 K/mm3 (1.96-9.15); NEUTROPHILS PERCENT AUTO 42 % (41-73); Platelet Count 186 K/mm3 (150-400); RDW Coefficient Variation 13.4 % (11.7-14.2); RDW Standard Deviation 49.6 fL (35.1-46.3); White Blood Cell Count 3.96 K/mm3 (4.00-11.30)
[2021-01-10 23:18] LABS: Alanine Aminotransfer (ALT/SGP 36 U/L (12-78); Albumin, Blood 3.4 g/dL (3.4-5.0); Albumin/Globulin Ratio 0.9 (0.8-1.8); Alk Phos 92 U/L (50-136); Anion Gap 6 mmol/L (6-16); Aspartate Aminotrans (AST/SGOT 53 U/L (12-37); Bilirubin, Total 0.3 mg/dL (0.1-1.0); Blood Urea Nitrogen 10 mg/dL (8-24); Bun/Creatinine Ratio 14.4 (12.0-20.0); CO2, Blood 26 mmol/L (21-32); CPK Creatine Kinase 44 U/L (26-193); Calcium, Blood 8.7 mg/dL (8.5-10.1); Chloride, Blood 108 mmol/L (98-108); Ethanol (Alcohol), Blood, Med 247 mg/dL; Globulin, Blood 3.6 g/dL (2.2-4.0); Glomerular Filtration Rate >60 (60-); Glucose, Blood 74 mg/dL (70-99); Magnesium, Blood 2.2 mg/dL (1.6-2.4); Potassium, Blood 4.1 mmol/L (3.5-5.5); Sodium, Blood 140 mmol/L (136-145); Troponin I <0.015 ng/mL (0.000-0.040)
== END 2021-01-11 00:31 | disposition home or self-care (01) ==
LOC: ER 22:37
PROVIDERS: Emergency Medicine
DX: R55 Syncope and collapse (principal); F10.229 Alcohol dependence with intoxication, unspecified; I10 Essential (primary) hypertension; Z88.0 Allergy status to penicillin; Z88.5 Allergy status to narcotic agent; Z79.899 Other long term (current) drug therapy
CPT/HCPCS: 71046; 80053; 82550; 83735; 83880; 84484; 85025; 93005; 93010; 99284-25; G0480

== ENCOUNTER → 2021-04-18 | Outpatient (CLI) | payer OTHER ==
[2021-04-18 19:31] LABS: BASOPHILS ABSOLUTE AUTO 0.02 K/mm3 (0.00-0.23); BASOPHILS PERCENT AUTO 1 % (0-2); EOSINOPHILS ABSOLUTE AUTO 0.11 K/mm3 (0.00-0.68); EOSINOPHILS PERCENT AUTO 3 % (0-6); Hematocrit 37.2 % (33.0-51.0); Hemoglobin 12.4 g/dL (11.5-16.0); IMMATURE GRAN ABSOLUTE AUTO 0.01 K/mm3 (0.00-0.10); IMMATURE GRAN PERCENT AUTO 0 % (0-1); LYMPHOCYTES ABSOLUTE AUTO 1.42 K/mm3 (0.84-5.20); LYMPHOCYTES PERCENT AUTO 35 % (21-46); MONOCYTES ABSOLUTE AUTO 0.33 K/mm3 (0.16-1.47); MONOCYTES PERCENT AUTO 8 % (4-13); Mean Corpuscular HGB 33.1 pg (26.0-34.0); Mean Corpuscular HGB Conc 33.3 g/dL (31.5-36.5); Mean Corpuscular Volume 99 fL (80-100); Mean Platelet Volume 10.3 fL (9.1-12.4); NEUTROPHILS PERCENT AUTO 54 % (41-73); Platelet Count 170 K/mm3 (150-400); RDW Coefficient Variation 13.4 % (11.7-14.2); RDW Standard Deviation 48.8 fL (35.1-46.3); Red Blood Cell Count 3.75 M/mm3 (3.80-5.20); White Blood Cell Count 4.09 K/mm3 (4.00-11.30)
[2021-04-18 20:18] LABS: Alanine Aminotransfer (ALT/SGP 22 U/L (12-78); Albumin, Blood 3.2 g/dL (3.4-5.0); Albumin/Globulin Ratio 0.9 (0.8-1.8); Alk Phos 60 U/L (50-136); Anion Gap 4 mmol/L (6-16); Aspartate Aminotrans (AST/SGOT 26 U/L (12-37); Bilirubin, Total 0.3 mg/dL (0.1-1.0); Blood Urea Nitrogen 16 mg/dL (8-24); Bun/Creatinine Ratio 20.8 (12.0-20.0); CO2, Blood 26 mmol/L (21-32); Calcium, Blood 9.2 mg/dL (8.5-10.1); Chloride, Blood 107 mmol/L (98-108); Creatinine, Blood 0.77 mg/dL (0.40-1.00); Globulin, Blood 3.5 g/dL (2.2-4.0); Glomerular Filtration Rate >60 (60-); Glucose, Blood 92 mg/dL (70-99); Potassium, Blood 3.6 mmol/L (3.5-5.5); Sodium, Blood 137 mmol/L (136-145); Total Protein, Blood 6.7 g/dL (6.4-8.2)
== END | disposition home or self-care (01) ==
LOC: LAB 18:13 → LAB SHORT 18:13
PROVIDERS: Nurse Practitioner Family
DX: I10 Essential (primary) hypertension (principal)
CPT/HCPCS: 80053; 85025

== ENCOUNTER 2021-04-30 17:16 | Emergency (ER) | payer OTHER ==
[~2021-04-30] VITALS: Ht 170.2 cm; Wt 56.7 kg
[2021-04-30 21:11] LABS: BASOPHILS ABSOLUTE AUTO 0.04 K/mm3 (0.00-0.23); BASOPHILS PERCENT AUTO 1 % (0-2); EOSINOPHILS ABSOLUTE AUTO 0.08 K/mm3 (0.00-0.68); EOSINOPHILS PERCENT AUTO 2 % (0-6); Hematocrit 41.3 % (33.0-51.0); Hemoglobin 14.4 g/dL (11.5-16.0); IMMATURE GRAN ABSOLUTE AUTO 0.02 K/mm3 (0.00-0.10); IMMATURE GRAN PERCENT AUTO 0 % (0-1); LYMPHOCYTES ABSOLUTE AUTO 1.91 K/mm3 (0.84-5.20); LYMPHOCYTES PERCENT AUTO 40 % (21-46); MONOCYTES ABSOLUTE AUTO 0.25 K/mm3 (0.16-1.47); MONOCYTES PERCENT AUTO 5 % (4-13); Mean Corpuscular HGB 32.8 pg (26.0-34.0); Mean Corpuscular HGB Conc 34.9 g/dL (31.5-36.5); Mean Corpuscular Volume 94 fL (80-100); NEUTROPHILS ABSOLUTE AUTO 2.51 K/mm3 (1.96-9.15); NEUTROPHILS PERCENT AUTO 52 % (41-73); RDW Coefficient Variation 13.5 % (11.7-14.2); RDW Standard Deviation 47.2 fL (35.1-46.3); Red Blood Cell Count 4.39 M/mm3 (3.80-5.20); White Blood Cell Count 4.81 K/mm3 (4.00-11.30)
[2021-04-30 21:12] LABS: Mean Platelet Volume 9.6 fL (9.1-12.4); Platelet Count 207 K/mm3 (150-400)
[2021-04-30 21:23] LABS: Alanine Aminotransfer (ALT/SGP 24 U/L (12-78); Albumin, Blood 3.6 g/dL (3.4-5.0); Albumin/Globulin Ratio 0.8 (0.8-1.8); Alk Phos 77 U/L (50-136); Anion Gap 8 mmol/L (6-16); Aspartate Aminotrans (AST/SGOT 52 U/L (12-37); Bilirubin, Total 0.8 mg/dL (0.1-1.0); Blood Urea Nitrogen 8 mg/dL (8-24); Bun/Creatinine Ratio 13.3 (12.0-20.0); CO2, Blood 26 mmol/L (21-32); Calcium, Blood 9.3 mg/dL (8.5-10.1); Chloride, Blood 106 mmol/L (98-108); Globulin, Blood 4.5 g/dL (2.2-4.0); Glomerular Filtration Rate >60 (60-); Glucose, Blood 78 mg/dL (70-99); Potassium, Blood 4.2 mmol/L (3.5-5.5); Sodium, Blood 140 mmol/L (136-145); Total Protein, Blood 8.1 g/dL (6.4-8.2); Troponin I <0.015 ng/mL (0.000-0.040)
[2021-04-30] MEDS ORDERED: BENZ100A PO (21:52)
== END 2021-04-30 21:59 | disposition home or self-care (01) ==
LOC: ER 17:16
PROVIDERS: Physician Assistant
DX: J20.8 Acute bronchitis due to other specified organisms (principal); I10 Essential (primary) hypertension; Z86.73 Personal history of transient ischemic attack (TIA), and cerebral infarction without residual deficits; F17.210 Nicotine dependence, cigarettes, uncomplicated; Z88.0 Allergy status to penicillin; Z88.5 Allergy status to narcotic agent; Z79.899 Other long term (current) drug therapy
CPT/HCPCS: 36415; 71046; 80053; 84484; 85025; 93005; 93010; 99284-25

== ENCOUNTER → 2022-03-28 | Outpatient (CLI) | payer OTHER ==
[~2022-03-28] MED LIST changes: +BENZ100A PO
[2022-03-28 17:13] LABS: BASOPHILS ABSOLUTE AUTO 0.03 K/mm3 (0.00-0.23); BASOPHILS PERCENT AUTO 1 % (0-2); EOSINOPHILS ABSOLUTE AUTO 0.05 K/mm3 (0.00-0.68); EOSINOPHILS PERCENT AUTO 1 % (0-6); Hematocrit 35.4 % (33.0-51.0); IMMATURE GRAN ABSOLUTE AUTO 0.01 K/mm3 (0.00-0.10); IMMATURE GRAN PERCENT AUTO 0 % (0-1); LYMPHOCYTES PERCENT AUTO 22 % (21-46); MONOCYTES ABSOLUTE AUTO 0.41 K/mm3 (0.16-1.47); MONOCYTES PERCENT AUTO 10 % (4-13); Mean Corpuscular HGB 32.7 pg (26.0-34.0); Mean Corpuscular HGB Conc 33.9 g/dL (31.5-36.5); Mean Corpuscular Volume 97 fL (80-100); Mean Platelet Volume 10.2 fL (9.1-12.4); NEUTROPHILS ABSOLUTE AUTO 2.73 K/mm3 (1.96-9.15); NEUTROPHILS PERCENT AUTO 66 % (41-73); Platelet Count 202 K/mm3 (150-400); RDW Coefficient Variation 13.7 % (11.7-14.2); RDW Standard Deviation 48.4 fL (35.1-46.3); Red Blood Cell Count 3.67 M/mm3 (3.80-5.20); White Blood Cell Count 4.13 K/mm3 (4.00-11.30)
[2022-03-28 17:38] LABS: Bun/Creatinine Ratio 26.2 (12.0-20.0); Calcium, Blood 9.6 mg/dL (8.5-10.1); Creatinine, Blood 0.88 mg/dL (0.40-1.00); Potassium, Blood 3.6 mmol/L (3.5-5.5); Thyroid Stimulating Hormone 0.577 uIU/mL (0.360-4.800)
[2022-03-29 06:10] LABS: HIV AB/P24 AG SCREEN Non Reactive (Non Reactive)
== END | disposition home or self-care (01) ==
LOC: LAB SHORT 16:04 → LAB 16:04
PROVIDERS: Nurse Practitioner Family
DX: Z11.59 Encounter for screening for other viral diseases (principal); L65.9 Nonscarring hair loss, unspecified; I10 Essential (primary) hypertension
CPT/HCPCS: 80048; 84443; 85025; 86803; 87389

== ENCOUNTER 2022-04-28 15:37 | Emergency (ER) | payer OTHER ==
[~2022-04-28] VITALS: Ht 170.2 cm; Wt 54.4 kg
[2022-04-28] MEDS ORDERED: LISI20 PO (15:50)
[2022-04-28 16:18] LABS: BASOPHILS ABSOLUTE AUTO 0.05 K/mm3 (0.00-0.23); BASOPHILS PERCENT AUTO 1 % (0-2); EOSINOPHILS PERCENT AUTO 2 % (0-6); Hematocrit 39.3 % (33.0-51.0); Hemoglobin 13.9 g/dL (11.5-16.0); IMMATURE GRAN ABSOLUTE AUTO 0.01 K/mm3 (0.00-0.10); IMMATURE GRAN PERCENT AUTO 0 % (0-1); LYMPHOCYTES ABSOLUTE AUTO 2.14 K/mm3 (0.84-5.20); LYMPHOCYTES PERCENT AUTO 38 % (21-46); MONOCYTES ABSOLUTE AUTO 0.33 K/mm3 (0.16-1.47); MONOCYTES PERCENT AUTO 6 % (4-13); Mean Corpuscular HGB 34.1 pg (26.0-34.0); Mean Corpuscular HGB Conc 35.4 g/dL (31.5-36.5); Mean Corpuscular Volume 96 fL (80-100); Mean Platelet Volume 9.6 fL (9.1-12.4); NEUTROPHILS ABSOLUTE AUTO 2.94 K/mm3 (1.96-9.15); NEUTROPHILS PERCENT AUTO 53 % (41-73); Platelet Count 238 K/mm3 (150-400); RDW Coefficient Variation 13.9 % (11.7-14.2); RDW Standard Deviation 49.4 fL (35.1-46.3); Red Blood Cell Count 4.08 M/mm3 (3.80-5.20); White Blood Cell Count 5.57 K/mm3 (4.00-11.30)
[2022-04-28 16:35] LABS: Albumin, Blood 3.7 g/dL (3.4-5.0); Bilirubin, Total 0.7 mg/dL (0.1-1.0); Calcium, Blood 9.1 mg/dL (8.5-10.1); Creatinine, Blood 0.6 mg/dL (0.40-1.00); Globulin, Blood 3.6 g/dL (2.2-4.0); Potassium, Blood 3.6 mmol/L (3.5-5.5); Total Protein, Blood 7.3 g/dL (6.4-8.2)
== END 2022-04-28 16:32 | disposition home or self-care (01) ==
LOC: ER 15:37
PROVIDERS: Student in an Organized Health Care Education/Training Program
DX: F41.0 Panic disorder [episodic paroxysmal anxiety] (principal); F17.210 Nicotine dependence, cigarettes, uncomplicated; Z88.0 Allergy status to penicillin; Z88.5 Allergy status to narcotic agent; Z79.899 Other long term (current) drug therapy; Z86.73 Personal history of transient ischemic attack (TIA), and cerebral infarction without residual deficits
CPT/HCPCS: 80053; 85025

== ENCOUNTER 2022-06-08 11:39 | Inpatient (IN) | payer OTHER ==
[~2022-06-08] VITALS: Ht 170.2 cm; Wt 56.7 kg
[~2022-06-08 11:39] MED LIST changes: +LISI20 PO; -THERA-D2000 UNIT PO; +Vitamin D1000 UNI1 PO
[2022-06-08 13:34] LABS: BASOPHILS ABSOLUTE AUTO 0.02 K/mm3 (0.00-0.23); BASOPHILS PERCENT AUTO 0 % (0-2); EOSINOPHILS ABSOLUTE AUTO 0.01 K/mm3 (0.00-0.68); EOSINOPHILS PERCENT AUTO 0 % (0-6); Hemoglobin 11.1 g/dL (11.5-16.0); IMMATURE GRAN ABSOLUTE AUTO 0.02 K/mm3 (0.00-0.10); IMMATURE GRAN PERCENT AUTO 0 % (0-1); LYMPHOCYTES ABSOLUTE AUTO 0.61 K/mm3 (0.84-5.20); LYMPHOCYTES PERCENT AUTO 8 % (21-46); MONOCYTES ABSOLUTE AUTO 0.38 K/mm3 (0.16-1.47); MONOCYTES PERCENT AUTO 5 % (4-13); Mean Corpuscular HGB 34.3 pg (26.0-34.0); Mean Corpuscular HGB Conc 34.7 g/dL (31.5-36.5); Mean Corpuscular Volume 99 fL (80-100); NEUTROPHILS ABSOLUTE AUTO 6.26 K/mm3 (1.96-9.15); NEUTROPHILS PERCENT AUTO 86 % (41-73); Platelet Count 158 K/mm3 (150-400); RDW Coefficient Variation 12.5 % (11.7-14.2); RDW Standard Deviation 45.2 fL (35.1-46.3); Red Blood Cell Count 3.24 M/mm3 (3.80-5.20)
[2022-06-08 13:51] LABS: Albumin, Blood 3.4 g/dL (3.4-5.0); Albumin/Globulin Ratio 1.1 (0.8-1.8); Bilirubin, Total 0.9 mg/dL (0.1-1.0); Bun/Creatinine Ratio 23.7 (12.0-20.0); Calcium, Blood 8.6 mg/dL (8.5-10.1); Creatinine, Blood 0.76 mg/dL (0.40-1.00); Globulin, Blood 3.2 g/dL (2.2-4.0); Potassium, Blood 4.1 mmol/L (3.5-5.5); Total Protein, Blood 6.6 g/dL (6.4-8.2)
[2022-06-08 14:56] LABS: Influenza A, PCR NEGATIVE (NEGATIVE); Influenza B, PCR NEGATIVE (NEGATIVE); Resp Syncytial Virus, PCR NEGATIVE (NEGATIVE); SARS-Cov-2 (COVID-19) PCR, MMC NEGATIVE (NEGATIVE)
--- NOTE | 2022-06-09 08:15 | NUR ---
0510: Pt arrived from Emergency Department via gurney, transfered with 1 person assist. Pt got up, weak but unable to transfer herself. Pt reports moderate pain on r side ribcage. diagnosed with right rib fx. Pt has laceration with riri at the back of head. Pt reports headache started an hour ago. denies blurry vision, dizziness and nausea. Pt also has a bruise on under R eye from a fall a month ago. VSS, mildly hypertensive. Pt denies chest pain, sob, numbness and tingling sensation. Pt has chronic neuropathy on bilateral low extremities. IV on l hand , 22G. saline locked. Pt tolerating po intake, denies n/v. Call light within reach. will continue to monitor and will provide report to oncoming nurse.
--- NOTE | 2022-06-09 20:01 | NUR ---
SHIFT SUMMARY PT REMAINS IN THE HOSPITAL FOR PAIN MANAGEMENT, NEURO CHECKS AND MOBILIZATION R/T INJURIES SUSTAINED FROM A FALL AT HOME. PAIN MANAGED WITH NORCO. PT RATES PAIN HIGH AT 10/10 BUT APPEARS COMFORTABLE AND RESTS WITH EYES CLOSED. DR. MULLRE NOTIFIED OF PT'S REPORTED ELEVATED PAIN. PT IS A 1 ASSIST WHEN OOB. PT IS TOLERATING PO. SHE IS USING HER IS. PT ALERT AND ORIENTED, NEURO CHECKS WNL. REPORT GIVEN TO CHICA RESENDIZ.
--- NOTE | 2022-06-09 20:30 | NUR ---
PT AWAKE ALERT NEURO CHECKS REMAIN WNL.
--- NOTE | 2022-06-10 00:30 | NUR ---
CHANGED HEAD DRESSING TONIGHT. LIGHT OOZING OF BLOOD FROM POST SCALP LAC. COVERED WITH TELFA AND WRAPPED WITH COBAN.NEURO CHECKS KYRIE GIBBONS.
--- NOTE | 2022-06-10 07:35 | NUR ---
SUMMARY PT SLEPT QUIETLY.NO CHANGES TO NEURO STATUS.PT MORE GROGGY AFTER HS MEDS.
[2022-06-10 10:00] LABS: Hematocrit 27.5 % (33.0-51.0); Hemoglobin 9.4 g/dL (11.5-16.0); Mean Corpuscular HGB 34.2 pg (26.0-34.0); Mean Corpuscular HGB Conc 34.2 g/dL (31.5-36.5); Mean Corpuscular Volume 100 fL (80-100); Mean Platelet Volume 10.3 fL (9.1-12.4); Platelet Count 121 K/mm3 (150-400); RDW Coefficient Variation 12.5 % (11.7-14.2); RDW Standard Deviation 45.4 fL (35.1-46.3); Red Blood Cell Count 2.75 M/mm3 (3.80-5.20); White Blood Cell Count 9.69 K/mm3 (4.00-11.30)
[2022-06-10 10:19] LABS: Bun/Creatinine Ratio 22.2 (12.0-20.0); Calcium, Blood 8.4 mg/dL (8.5-10.1); Creatinine, Blood 1.08 mg/dL (0.40-1.00); Potassium, Blood 3.8 mmol/L (3.5-5.5)
--- NOTE | 2022-06-10 13:19 | NUR ---
LOW BLOOD PRESSURE PT BECAME DIZZY WHILE WORKING WITH THERAPY AT APPROXIMATELY 0905. PT WAS ASSISTED TO SIT AT THE EDGE OF THE BED AND BP CHECKED; BP 77/50 AND HR 100. PT REPORTED FEELING DIZZY. PT WAS ASSISTED TO LAY BACK IN BED WITHOUT HOB ELEVATED BP 79/57, HR 93, O2 SATURATION 95% ON 2L NC. DR. DE LA TORRE CALLED AND MESSAGE LEFT RE LOW BP, BREAKFAST MANAGER NOTIFIED. . BP CHECKED AGAIN AT 0917 AND HAD DECREASED TO 68/48. PT CONTINUED TO FEEL DIZZY AND BECAME DROWSY BUT STILL WOKE UP AND RESPONDED APPROPRIATELY TO STAFF, NO OTHER NEURO CHANGES. NS BOLUS STARTED. DR. DE LA TORRE CONTACTED AGAIN AND STATED FLUID BOLUS OK, ORDERED TELE AND LABS. PT AND BP ASSESSED T/O THE TIME BOULUS WAS GIVEN, NO SIGNIFICANT CHANGES IN PT CONDITION. AM BP AND PSYCH MEDS HELD TO PREVENT FURHTER SOMNOLENCE OR DROP IN BP, DR. DE LA TORRE NOTIFIED. KEPPRA WAS GIVEN. MANUAL BP CHECKED AT 1010 AND WAS 82/50 WITH HR OF 77. BOLUS WAS COMPLETED AT APPROXIMATELY 1039 AND BP REMAINED LOW, PT NO LONGER REPORTED DIZZINESS, SHE STILL REMAINED SOMNOLENT BUT WAKES WHEN STAFF TALKS TO HER AND RESPONDS APPROPRIATELY. DR. DE LA TORRE NOTIFIED AND NORMAL SALINE WAS ORDERED AT 150ML/HR. DR. DE LA TORRE PLACED TRANSER ORDERS, PT'S BP CONTINUED TO IMPROVE. AT 1158 BP 92/53. DR. DE LA TORRE NOTIFIED THAT BP WAS CONTINUING TO IMPROVE. OK FOR PT TO REMAIN ON SURGICAL FLOOR LONG NO FURTHER DROP IN H&H OR BP AND NO CHANGES IN NEURO STATUS. TRANSFER TO PCU CANCELLED AT 1158. WILL CONTINUE TO MONITOR FOR ANY CHANGES AND NOTIFY DR. DE LA TORRE NEEDED.
[2022-06-10 13:56] LABS: Hematocrit 25.1 % (33.0-51.0); Hemoglobin 8.5 g/dL (11.5-16.0)
--- NOTE | 2022-06-10 14:17 | NUR ---
NEURO CHECKS AND UPDATE TO DR. RE LABS DR. DE LA TORRE NOTIFIED OF DECREASE IN H&H WELL CHANGES IN CMP RESULTS. BP REMAINS LOW. PT CONTINUES TO BE SOMNOLENT BUT WAKES WHEN SPOKEN TO AND REPONDS APPROPRIATELY, SHE IS A&OX4. PT HAS A HX OF CVA WITH RIGHT SIDED WEAKNESS, NOT NOTED ON PREVIOUS ASSESSMENTS, BUT R SIDE IS SLIGHTLY WEEKER AT THIS TIME. PUPILS ARE EQUAL AND REACTIVE TO LIGHT. PT IS ABLE TO FOLLOW MY FINGER WITH HER EYES. SHE IS ABLE TO MOVE ALL EXTREMITIES. DR. DE LA TORRE UPDATED REGARDING PT ASSESSMENT CHANGES. WILL CONTINUE TO MONITOR.
[2022-06-10 19:20] LABS: Hematocrit 25.8 % (33.0-51.0); Hemoglobin 8.8 g/dL (11.5-16.0)
[2022-06-11 05:32] LABS: Bun/Creatinine Ratio 30.4 (12.0-20.0); Calcium, Blood 7.5 mg/dL (8.5-10.1); Creatinine, Blood 0.69 mg/dL (0.40-1.00)
[2022-06-11 07:02] LABS: Hematocrit 24.2 % (33.0-51.0); Hemoglobin 8.4 g/dL (11.5-16.0); Mean Corpuscular HGB 34.3 pg (26.0-34.0); Mean Corpuscular HGB Conc 34.7 g/dL (31.5-36.5); Mean Corpuscular Volume 99 fL (80-100); Mean Platelet Volume 10.3 fL (9.1-12.4); Platelet Count 92 K/mm3 (150-400); RDW Coefficient Variation 12.3 % (11.7-14.2); RDW Standard Deviation 44.5 fL (35.1-46.3); Red Blood Cell Count 2.45 M/mm3 (3.80-5.20)
--- NOTE | 2022-06-11 07:22 | NUR ---
SHIFT SUMMARY NO CHANGES OVER NIGHT, PT REMAINS A&O X3, FORGETFUL AT TIMES, REORIENTS QUICKLY, BED ALARM FOR SAFETY, VSS, SPO2 >95% ON 2L O2 VIA NC, I/S USE ENC, PT ENC TO SPLINT WHILE COUGHING, LUNGS REMAIN COARSE, BLOOD TINGED SECRETIONS NOTED, HUMIDIFICATION ADDED TO O2, VOIDING WNL, 1-2 ASSIST TO BSC, TOLERATING PO INTAKE, CALL LIGHT IN REACH, RESTING QUIETLY WATCHING TV AT THIS TIME. REPORT GIVEN TO DAY RN.
--- NOTE | 2022-06-11 16:40 | NUR ---
DURAGESIC PATCH PLACED ON R SHOULDER
--- NOTE | 2022-06-11 17:01 | NUR ---
SHIFT SUMMARY PT PAIN MANAGED PER EMAR. PT HAS PAIN WITH MOVEMENT AND DEEP BREATHING BUT IS ABLE TO AMBULATE SMALL AMOUNTS. SHE HAS BEEN UP IN HER CHAIR FOR MOST OF THE SHIFT. EDUCATED PATIENT ON IMPORTANCE OF SITTING UP FOR HER HEALING. SHE IS RECEPTIVE AND AGREEABLE TO BEING IN THE CHAIR. PT HAS ABD BINDER ON FOR COMFORT AT THIS TIME. VOIDING WELL. CALLS APPROPRIATLY AND MAKES NEEDS MEDS. NEURO CHECKS WNL T/O SHIFT. PT SLIGHTLY CONFUSED ON INITIALLY WAKING UP BUT QUICKLY REORIENTS.
--- NOTE | 2022-06-12 02:49 | NUR ---
[address] BURCH FOR OT FENTANYL FOR BREAKTHROUGH PAIN. PT RESPONDED WELL TO TX. WCTM
--- NOTE | 2022-06-12 05:15 | NUR ---
SUMMARY PT CONTINUES TO HAVE PAIN. PT NEEDED SOME BREAKTHROUGH PAIN MEDS. PT HAD SIGNIFICANT DIFFICULTY SLEEPING. PT STATES SHE WOULD LIKE HER HOME SLEEP AIDS. WILL PASS ON TO DAY SHIFT. PT CURRENTLY AWAKE HAVING SOME DISCOMFORT. CALL LIGHT IN REACH.
--- NOTE | 2022-06-12 11:59 | NUR ---
PT AMBULATED IN ROOM WITH PHYSICAL THERAPY. AFTER SHE REPORTS PAIN LEVEL AT 9/10 WHEN ASKED IF IT FEELS TOLERABLE SHE STATED YES AND THAT IT WAS MUCH BETTER THAN BEFORE. CURRENTLY SITTING UP IN HER CHAIR EATING LUNCH. APPEARS COMFORTABLE, NO GRIMACE ON HER FACE. HAS OCCASIONAL MOAN WITH COUGHING
[2022-06-12 13:50] LABS: SARS-Cov-2 (COVID-19) PCR, MMC NEGATIVE (NEGATIVE)
--- NOTE | 2022-06-12 14:28 | NUR ---
report given to recieving nurse at [facility]. all questions answered at this time. pt continues to sit up in chair, reports feeling much better since transition to tramadol. orientation is much clearer.
--- NOTE | 2022-06-12 15:11 | NUR ---
PT LEFT WITH TRANSPORT AT THIS TIME. ALL BELONGINGS SENT WITH PATIENT, PRESCRIPTIONS IN PACKET AND PACKET SENT WITH CUSTOMER CARE VOICE CONSULTANT. PT ABLE TO STAND AND TRANSFER WELL WITH ONE ASSIST. IV REMOVED PT TOLERATED WELL. PT REPORTS FEELING EXCITED TO GO TO [facility] AND CONTINUE TO GET STRONGER.
== END 2022-06-12 15:14 | DRG 183 ==
LOC: ER 11:39 → ERHOLD 06-09 01:00 → ER 06-09 01:00 → SURS 06-09 01:00
PROVIDERS: Emergency Medicine; Internal Medicine; ADMIT Surgery
PROC: 3E0234Z Introduction of Serum, Toxoid and Vaccine into Muscle, Percutaneous Approach (ICD-10-PCS; principal; 2022-06-10)
DX: S22.41XA Multiple fractures of ribs, right side, initial encounter for closed fracture (principal); S06.5X0A Traumatic subdural hemorrhage without loss of consciousness, initial encounter; S06.6X0A Traumatic subarachnoid hemorrhage without loss of consciousness, initial encounter; D62 Acute posthemorrhagic anemia; Z23 Encounter for immunization; Z20.822 Contact with and (suspected) exposure to COVID-19; F10.20 Alcohol dependence, uncomplicated; S01.01XA Laceration without foreign body of scalp, initial encounter; K70.30 Alcoholic cirrhosis of liver without ascites; I95.9 Hypotension, unspecified; M54.9 Dorsalgia, unspecified; F32.A Depression, unspecified; G89.29 Other chronic pain; R91.1 Solitary pulmonary nodule; F17.210 Nicotine dependence, cigarettes, uncomplicated; Z71.6 Tobacco abuse counseling; Z98.890 Other specified postprocedural states; Z88.0 Allergy status to penicillin; Z88.6 Allergy status to analgesic agent; Z79.899 Other long term (current) drug therapy; W07.XXXA Fall from chair, initial encounter
CPT/HCPCS: 0241U; 12004; 36415; 36416; 70450; 71045; 71101; 71250; 71260; 72125; 80048; 80053; 85014; 85018; 85025; 85027; 86850; 86900; 86901; 90471; 90714; 93005; 93010; 96361; 96365-59; 96366-59; 96375-59; 96376-59; 97110; 97116; 97162; 97166; 97530; 97535; 99285-25; A9270; G0378; J1170; J1953; J2405; J3010; J7030; Q9967; U0004

== ENCOUNTER 2022-06-14 17:23 | Observation (INO) | payer OTHER ==
[~2022-06-14] VITALS: Ht 170.2 cm; Wt 59.7 kg
[2022-06-14] MEDS ORDERED: TRAM50 PO (17:34)
[2022-06-14] MEDS ORDERED: OXYC5 PO (17:36)
[2022-06-14 17:54] LABS: BASOPHILS ABSOLUTE AUTO 0.02 K/mm3 (0.00-0.23); BASOPHILS PERCENT AUTO 0 % (0-2); EOSINOPHILS ABSOLUTE AUTO 0.15 K/mm3 (0.00-0.68); EOSINOPHILS PERCENT AUTO 2 % (0-6); Hematocrit 25.8 % (33.0-51.0); Hemoglobin 9.1 g/dL (11.5-16.0); IMMATURE GRAN ABSOLUTE AUTO 0.03 K/mm3 (0.00-0.10); IMMATURE GRAN PERCENT AUTO 1 % (0-1); LYMPHOCYTES PERCENT AUTO 11 % (21-46); MONOCYTES ABSOLUTE AUTO 1.04 K/mm3 (0.16-1.47); MONOCYTES PERCENT AUTO 16 % (4-13); Mean Corpuscular HGB 33.8 pg (26.0-34.0); Mean Corpuscular HGB Conc 35.3 g/dL (31.5-36.5); Mean Corpuscular Volume 96 fL (80-100); Mean Platelet Volume 9.6 fL (9.1-12.4); NEUTROPHILS PERCENT AUTO 70 % (41-73); Platelet Count 196 K/mm3 (150-400); RDW Coefficient Variation 12.5 % (11.7-14.2); RDW Standard Deviation 43.9 fL (35.1-46.3); Red Blood Cell Count 2.69 M/mm3 (3.80-5.20); White Blood Cell Count 6.54 K/mm3 (4.00-11.30)
[2022-06-14 18:13] LABS: Albumin, Blood 2.5 g/dL (3.4-5.0); Albumin/Globulin Ratio 0.7 (0.8-1.8); Bun/Creatinine Ratio 35.8 (12.0-20.0); Calcium, Blood 8.8 mg/dL (8.5-10.1); Creatinine, Blood 0.53 mg/dL (0.40-1.00); Globulin, Blood 3.7 g/dL (2.2-4.0); Potassium, Blood 2.8 mmol/L (3.5-5.5); Total Protein, Blood 6.2 g/dL (6.4-8.2)
[2022-06-14 20:30] LABS: Influenza A, PCR NEGATIVE (NEGATIVE); Influenza B, PCR NEGATIVE (NEGATIVE); Resp Syncytial Virus, PCR NEGATIVE (NEGATIVE); SARS-Cov-2 (COVID-19) PCR, MMC NEGATIVE (NEGATIVE)
--- NOTE | 2022-06-14 22:30 | NUR ---
ADMIT NOTE; PT ARRIVES FROM THE ED VIA ED GURNEY. AT TIME OF ARRIVAL PT APPEARS TO BE IN NO DISTRESS. THE PT ARRIVES WITH AZITHROMYCIN INFUSING. THE PT IS PUT ON 2L NC WHICH IS HER PRESENT BASELINE. THE PT COMPLAINS OF 4/10 PAIN IN RELATION TO HER HEAD WOUND. THE PT IS AXO X4 UPON ARRIVAL AND IS ABLE TO STAND AND PIVOT TO THE BED FROM THE GURNEY WITH A STANDBY ASSIST.
--- NOTE | 2022-06-15 04:39 | NUR ---
SHIFT SUMMARY; NO ACUTE CHANGES OVERNIGHT. THE PT WAS ABLE TO REST IN BED FOR THE DURATION OF THE SHIFT. THE PT REMAINS STABLE ON 2L NC. THE PT IS AXO X4. THE PT REPORTED 4/10 PAIN IN RELATION TO THE SCALP WOUND AT THE BEGINNING OF SHIFT BUT HAS SINCE BEEN SLEEPING. PICTURES OF THE SCALP WOUND CAN BE FOUND IN THE PTS CHART. PRESENTLY THE PT IS RESTING IN BED WITH THE BED IN THE LOWEST POSITION AND THE CALL LIGHT AT BEDSIDE.
--- NOTE | 2022-06-15 18:39 | NUR ---
SHIFT SUMMARY: PT A&O X4, ANXIOUS AND TEARFUL. PT VOICE SHE WANTED TO LEAVE AMA DURING DR. CONRAD ASSESSMENT. PT CALLED FRIEND TO TAKE HER HOME. CN NURSE NOTIFED OF PT WANTING TO LEAVE AMA. QUALITY IMPROVEMENT SPECIALIST SPOKE WITH PT ABOUT RISKS AND BENEFITS OF HER INJURIES AND THE IMPORTANCE OF RECEVING CARE. PT CHOOSE TO STAY IN THE HOSPITAL AND RECEIVE PROPER CARE. PT HAD MODERATE PAIN FROM WOUND SITE AND FRACTUREED RIBS, PT MEDICATION PAIN MANAGEMENT AVAILABLE TYNEOL 650MG. DR. WYATT CONTACTED, QUALITY IMPROVEMENT SPECIALIST REQUESTED ADDITIONAL PAIN MEDICATION. NO NEW ORDERS PLACED AT THIS TIME, DR. WYATT NOTIFED QUALITY IMPROVEMENT SPECIALIST TO CONTIUNE PAIN MANAGEMENT PERSCRIBED. PT ABLE TO AMBULATE FROM BED TO BEDSIDE CAMMODE. DR. MULLER ASSESSED PT WOUND SITE, PT TO BE PLACED ON NPO AT MIDNIGHT, AND PLACE NEW WOUND CARE ORDERS. PT IN BED WITH CALL LIGHT WITHIN REACH.
--- NOTE | 2022-06-15 21:01 | NUR ---
ALERT AND ORIENTED. BP ELEVATED (187/103), MED GIVEN. WILL RE CHECK BP LATER. CALL LIGHT INE REACH
--- NOTE | 2022-06-15 23:33 | NUR ---
MED EFFECTIVE BP 143/76 ASYMPTOMATIC
--- NOTE | 2022-06-16 03:21 | NUR ---
MDS MANAGER SUMMARY BP WAS ELEVATED NEAR SHIFT COMMENCE, MEDICATED AND BP TRENDED TO WNL - SEE DOC FLOW SHEETS FOR DETAILS. DRESSING OF HEAD INTACT. VOICED HEADACHE AND RIB DISCOMFORT. ANALGESIC GIVEN, MED EFFECTIVE, HAS BEEN RESTING QUIETLY WITH FEW INTERRUPTIONS SINCE. NPO SINCE MIDNIGHT FOR AM PROCEDURE. CALL LIGHT IN REACH. WILL CONTINUE TO MONITOR.
[2022-06-16 05:09] LABS: BASOPHILS ABSOLUTE AUTO 0.03 K/mm3 (0.00-0.23); BASOPHILS PERCENT AUTO 0 % (0-2); EOSINOPHILS ABSOLUTE AUTO 0.21 K/mm3 (0.00-0.68); EOSINOPHILS PERCENT AUTO 3 % (0-6); Hemoglobin 8.6 g/dL (11.5-16.0); IMMATURE GRAN ABSOLUTE AUTO 0.04 K/mm3 (0.00-0.10); IMMATURE GRAN PERCENT AUTO 1 % (0-1); LYMPHOCYTES ABSOLUTE AUTO 1.07 K/mm3 (0.84-5.20); LYMPHOCYTES PERCENT AUTO 15 % (21-46); MONOCYTES ABSOLUTE AUTO 0.77 K/mm3 (0.16-1.47); MONOCYTES PERCENT AUTO 11 % (4-13); Mean Corpuscular HGB 32.6 pg (26.0-34.0); Mean Corpuscular HGB Conc 34.4 g/dL (31.5-36.5); Mean Corpuscular Volume 95 fL (80-100); Mean Platelet Volume 9.5 fL (9.1-12.4); NEUTROPHILS ABSOLUTE AUTO 5.06 K/mm3 (1.96-9.15); NEUTROPHILS PERCENT AUTO 71 % (41-73); Platelet Count 264 K/mm3 (150-400); RDW Coefficient Variation 12.5 % (11.7-14.2); RDW Standard Deviation 43.3 fL (35.1-46.3); Red Blood Cell Count 2.64 M/mm3 (3.80-5.20); White Blood Cell Count 7.18 K/mm3 (4.00-11.30)
[2022-06-16 05:36] LABS: Bun/Creatinine Ratio 31.2 (12.0-20.0); Calcium, Blood 8.7 mg/dL (8.5-10.1); Creatinine, Blood 0.51 mg/dL (0.40-1.00); Magnesium, Blood 1.9 mg/dL (1.6-2.4); Potassium, Blood 4.3 mmol/L (3.5-5.5)
--- NOTE | 2022-06-16 09:36 | NUR ---
PT BROUGHT TO DAY SURGERY FROM FLOOR FOR PROCEDURE. Patient confirms NPO status and agrees with scheduled surgery. Pre-Op teaching done. Pt verbalizes understanding. TWO BRACELETS REMOVED AND PLACED ON CHART FOR SAFEKEEPING. PT STATES RINGS CANNOT BE REMOVED, WAIVER SIGNED, RINGS TAPED.
[2022-06-16] MEDS ORDERED: Acetaminophen325 M1 PO (16:18)
[2022-06-16] MEDS ORDERED: NICO21TP TOP ×2 (16:19→16:32)
[2022-06-16] MEDS ORDERED: LEVE500 PO ×2 (16:19→16:31)
[2022-06-16] MEDS ORDERED: LISI20 PO ×2 (16:19→16:32)
[2022-06-16] MEDS ORDERED: CEPH500 PO (16:20)
--- NOTE | 2022-06-16 18:23 | NUR ---
SHIFT SUMMARY: PT A&O X4, PLEASANT AND COOPERATIVE. PT TRANSFERED TO DAY SURGERY AT 0930, PT RETURNED FROM PACU AT 1215. PT TOLERATED SEDATION MEDICATION WELL. PT VITALS TAKEN IN RM STABLE; 134/78 BP, HR 74,TEMP 98.1, O2 98% 2L NC, AND RR 14. PT A&O X4, SITTING UP IN BED, TALKING AND EATING. PT TIRATED FROM 2L TO 1L NC WITH STABLE 02 STATS. PT INCISION COVERED WITH 4X4, ABD PAD AND KERLIX DRESSING. PT HAS MODERATE DRAINAGE OF BLOOD AND CLEAR FLUID. PT MEDICATED PER EMAR PROTOCOL. PT ABLE TO SIDE AT BEDSIDE AND PROVIDE SELF WITH BED BATH ONLY SETUP NEEDED. PT IN BED WITH CALL LIGHT WITHIN REACH.
--- NOTE | 2022-06-17 03:17 | NUR ---
SEARCH SPECIALIST SUMMARY AWAKE AT SHIFT COMMENCE, CHEERFUL AFFECT. BP ELEVATED AT HS, MEDICATION GIVEN AND BP BACK TO WNL - SEE DOC FLOW SHEETS FOR DETAILS. ASYMPTOMATIC. OCCIPITAL DRESSING (POST SURGICAL) REMAINS INTACT. NO NOTED DRAINAGE. MEDICATED FOR DISCOMFORT WITH TYLENOL AT HS AND HAS BEEN RESTING QUIETLY WITH FEW INTERRUPTIONS SINCE. CALL LIGHT IN ERACH. WILL CONTINUE TO MONITOR.
[2022-06-17 15:21] LABS: Influenza A, PCR NEGATIVE (NEGATIVE); Influenza B, PCR NEGATIVE (NEGATIVE); Resp Syncytial Virus, PCR NEGATIVE (NEGATIVE); SARS-Cov-2 (COVID-19) PCR, MMC NEGATIVE (NEGATIVE)
--- NOTE | 2022-06-17 19:24 | NUR ---
SHIFT SUMMARY: PT A&O X4, PLEASANT AND COOPERATIVE. PT HAD MODERATE PAIN THROUGHOUT THE SHIFT. PT MEDICATED PER EMAR PROTOCOL, DR. CORDERO NOTIFED OF PT PAIN AND NEW ORDERS PLACE FOR PAIN MANAGEMENT. PT ABLE TO AMBULATE TO THE BATHROOM AND SHOWER WITH ASSISTANCE. PT IN BED AND SLEPT MOST OF THE SHIFT. PT IN BED WITH CALL LIGHT WITHIN REACH.
--- NOTE | 2022-06-18 04:09 | NUR ---
CUSTOMER SUPPORT REPRESENTATIVE SUMMARY VSS. DRESSING OF OCCIPITAL AREA CHANGED AFTER INITIAL ONE FELL OFF WHILE GETTING UP TO GO TO THE RESTROOM. STITCHES REMAIN INTACT. ANALGESICS ADMINISTERED FOR DISCOMFORT. HAS BEEN RESTING QUIETLY WITH FEW INTERRUPTIONS SINCE. CALL LIGHT IN REACH. WILL CONTINUE TO MONITOR.
[2022-06-18 05:40] LABS: Hematocrit 27.2 % (33.0-51.0); Hemoglobin 9.4 g/dL (11.5-16.0); Mean Corpuscular HGB 33.7 pg (26.0-34.0); Mean Corpuscular HGB Conc 34.6 g/dL (31.5-36.5); Mean Corpuscular Volume 98 fL (80-100); Mean Platelet Volume 9.3 fL (9.1-12.4); Platelet Count 397 K/mm3 (150-400); RDW Standard Deviation 46.4 fL (35.1-46.3); Red Blood Cell Count 2.79 M/mm3 (3.80-5.20); White Blood Cell Count 6.55 K/mm3 (4.00-11.30)
[2022-06-18 06:00] LABS: Albumin, Blood 2.4 g/dL (3.4-5.0); Anion Gap 7 mmol/L (6-16); Blood Urea Nitrogen 17 mg/dL (8-24); Bun/Creatinine Ratio 21.9 (12.0-20.0); CO2, Blood 28 mmol/L (21-32); Calcium, Blood 8.8 mg/dL (8.5-10.1); Chloride, Blood 103 mmol/L (98-108); Creatinine, Blood 0.78 mg/dL (0.40-1.00); Glomerular Filtration Rate 85 (60-); Glucose, Blood 90 mg/dL (70-99); Phosphorus, Blood 4.4 mg/dL (2.5-4.9); Sodium, Blood 138 mmol/L (136-145)
--- NOTE | 2022-06-18 17:32 | NUR ---
PT DISCHARGED TO [facility], UNABLE TO PROVIDE WRITTEN SCRIPT, SO DR CORDERO IS COMING BACK TO GIVE RN SCRIPT. WILL BE DRIVEN TO [facility] BY RN. DRESSING CHANGED THIS AM. WOUND DRAINING SMALL AMOUNT OF SEROSANG.
== END 2022-06-18 17:10 ==
LOC: ER 17:23 → MEDS 17:24 → SURS 22:34 → MEDS 22:35
PROVIDERS: Internal Medicine; Student in an Organized Health Care Education/Training Program; Surgery; ADMIT Internal Medicine
PROC: 0JX Subcutaneous Tissue and Fascia, Transfer (ICD-10-PCS; principal; 2022-06-16 09:30)
DX: T81.33XA Disruption of traumatic injury wound repair, initial encounter (principal); J18.9 Pneumonia, unspecified organism; E87.6 Hypokalemia; S22.41XA Multiple fractures of ribs, right side, initial encounter for closed fracture; X58.XXXA Exposure to other specified factors, initial encounter; I10 Essential (primary) hypertension; F32.A Depression, unspecified; K70.9 Alcoholic liver disease, unspecified; G40.909 Epilepsy, unspecified, not intractable, without status epilepticus; F41.9 Anxiety disorder, unspecified; G89.29 Other chronic pain; S06.6XAA Traumatic subarachnoid hemorrhage with loss of consciousness status unknown, initial encounter
CPT/HCPCS: 0241U; 36415; 70450; 71046; 80048; 80053; 80069; 83605; 83735; 84145; 85025; 85027; 87040; 87070; 87075; 87076; 87077; 87147; 87186; 87205; 93005; 93010; 96361; 96365; 96366; 96367; 96368; 96375; 96376; 99285-25; A9270; G0378; J0171; J0456; J1100; J2370; J2405; J2704; J3010; J3370; J3480; J7050; J7120

== ENCOUNTER 2022-07-22 00:30 | Day surgery (SDC) | payer OTHER ==
[~2022-07-22 00:30] MED LIST changes: +Acetaminophen325 M1 PO; +CEPH500 PO; +LEVE500 PO; +NICO21TP TOP; +OXYC5 PO
== END 2022-07-22 22:56 | disposition home or self-care (01) ==
LOC: WOUND 00:30
DX: S01.01XA Laceration without foreign body of scalp, initial encounter (principal); X58.XXXA Exposure to other specified factors, initial encounter; F17.200 Nicotine dependence, unspecified, uncomplicated; Z86.73 Personal history of transient ischemic attack (TIA), and cerebral infarction without residual deficits; Z88.0 Allergy status to penicillin; I10 Essential (primary) hypertension; F10.20 Alcohol dependence, uncomplicated
CPT/HCPCS: G0463

== ENCOUNTER 2022-09-04 14:10 | Emergency (ER) | payer OTHER ==
[~2022-09-04] VITALS: Ht 170.2 cm; Wt 61.2 kg
[2022-09-04 16:21] LABS: Albumin, Blood 3.6 g/dL (3.4-5.0); Albumin/Globulin Ratio 0.8 (0.8-1.8); Bilirubin, Total 0.3 mg/dL (0.1-1.0); Bun/Creatinine Ratio 24.3 (12.0-20.0); Calcium, Blood 9.2 mg/dL (8.5-10.1); Creatinine, Blood 0.62 mg/dL (0.40-1.00); Globulin, Blood 4.3 g/dL (2.2-4.0); Potassium, Blood 3.6 mmol/L (3.5-5.5); Total Protein, Blood 7.9 g/dL (6.4-8.2)
[2022-09-04 16:38] LABS: Influenza A, PCR NEGATIVE (NEGATIVE); Influenza B, PCR NEGATIVE (NEGATIVE); Resp Syncytial Virus, PCR NEGATIVE (NEGATIVE); SARS-Cov-2 (COVID-19) PCR, MMC NEGATIVE (NEGATIVE)
[2022-09-04 16:46] LABS: BASOPHILS ABSOLUTE AUTO 0.05 K/mm3 (0.00-0.23); BASOPHILS PERCENT AUTO 1 % (0-2); EOSINOPHILS ABSOLUTE AUTO 0.07 K/mm3 (0.00-0.68); EOSINOPHILS PERCENT AUTO 1 % (0-6); Hematocrit 31.8 % (33.0-51.0); IMMATURE GRAN ABSOLUTE AUTO 0.01 K/mm3 (0.00-0.10); IMMATURE GRAN PERCENT AUTO 0 % (0-1); LYMPHOCYTES ABSOLUTE AUTO 1.56 K/mm3 (0.84-5.20); LYMPHOCYTES PERCENT AUTO 31 % (21-46); MONOCYTES ABSOLUTE AUTO 0.39 K/mm3 (0.16-1.47); MONOCYTES PERCENT AUTO 8 % (4-13); Mean Corpuscular HGB 26.5 pg (26.0-34.0); Mean Corpuscular HGB Conc 31.4 g/dL (31.5-36.5); Mean Corpuscular Volume 84 fL (80-100); Mean Platelet Volume 9.2 fL (9.1-12.4); NEUTROPHILS ABSOLUTE AUTO 3.03 K/mm3 (1.96-9.15); NEUTROPHILS PERCENT AUTO 59 % (41-73); Platelet Count 387 K/mm3 (150-400); RDW Coefficient Variation 15.5 % (11.7-14.2); RDW Standard Deviation 47.8 fL (35.1-46.3); Red Blood Cell Count 3.77 M/mm3 (3.80-5.20); White Blood Cell Count 5.11 K/mm3 (4.00-11.30)
== END 2022-09-04 19:30 | disposition home or self-care (01) ==
LOC: ER 14:10
PROVIDERS: Student in an Organized Health Care Education/Training Program
DX: R06.02 Shortness of breath (principal); R07.81 Pleurodynia; I10 Essential (primary) hypertension; F17.210 Nicotine dependence, cigarettes, uncomplicated; Z88.0 Allergy status to penicillin; Z88.5 Allergy status to narcotic agent; Z79.899 Other long term (current) drug therapy; Z86.73 Personal history of transient ischemic attack (TIA), and cerebral infarction without residual deficits; Z20.822 Contact with and (suspected) exposure to COVID-19
CPT/HCPCS: 0241U; 71046; 71260; 80053; 83690; 83880; 84484; 85025; 85379; 93005; 93010; 99284-25; A9270; G0480; Q9967

== ENCOUNTER 2022-11-03 00:56 | Inpatient (IN) | payer OTHER ==
[~2022-11-03] VITALS: Ht 170.2 cm; Wt 57.6 kg
[2022-11-03] VITALS (23 sets, daily range): BP systolic 133–198; BP diastolic 74–168
[2022-11-03 04:13] LABS: BASOPHILS ABSOLUTE AUTO 0.03 K/mm3 (0.00-0.23); BASOPHILS PERCENT AUTO 1 % (0-2); EOSINOPHILS ABSOLUTE AUTO 0.08 K/mm3 (0.00-0.68); EOSINOPHILS PERCENT AUTO 2 % (0-6); Hematocrit 25.4 % (33.0-51.0); Hemoglobin 7.6 g/dL (11.5-16.0); IMMATURE GRAN ABSOLUTE AUTO 0.01 K/mm3 (0.00-0.10); IMMATURE GRAN PERCENT AUTO 0 % (0-1); LYMPHOCYTES ABSOLUTE AUTO 1.05 K/mm3 (0.84-5.20); LYMPHOCYTES PERCENT AUTO 24 % (21-46); MONOCYTES ABSOLUTE AUTO 0.32 K/mm3 (0.16-1.47); MONOCYTES PERCENT AUTO 7 % (4-13); Mean Corpuscular HGB 21.1 pg (26.0-34.0); Mean Corpuscular HGB Conc 29.9 g/dL (31.5-36.5); Mean Corpuscular Volume 71 fL (80-100); Mean Platelet Volume 8.8 fL (9.1-12.4); NEUTROPHILS ABSOLUTE AUTO 2.98 K/mm3 (1.96-9.15); NEUTROPHILS PERCENT AUTO 67 % (41-73); Platelet Count 514 K/mm3 (150-400); RDW Standard Deviation 45.6 fL (35.1-46.3); White Blood Cell Count 4.47 K/mm3 (4.00-11.30)
[2022-11-03 04:32] LABS: Alanine Aminotransfer (ALT/SGP 14 U/L (12-78); Albumin, Blood 3.3 g/dL (3.4-5.0); Albumin/Globulin Ratio 0.6 (0.8-1.8); Alk Phos 90 U/L (50-136); Anion Gap 9 mmol/L (6-16); Aspartate Aminotrans (AST/SGOT 24 U/L (12-37); Bilirubin, Total 0.4 mg/dL (0.1-1.0); Blood Urea Nitrogen 12 mg/dL (8-24); Bun/Creatinine Ratio 19.3 (12.0-20.0); CO2, Blood 23 mmol/L (21-32); Calcium, Blood 9.4 mg/dL (8.5-10.1); Chloride, Blood 110 mmol/L (98-108); Creatinine, Blood 0.62 mg/dL (0.40-1.00); Ethanol (Alcohol), Blood, Med <3 mg/dL; Globulin, Blood 5.1 g/dL (2.2-4.0); Glomerular Filtration Rate 99 (60-); Glucose, Blood 103 mg/dL (70-99); Sodium, Blood 142 mmol/L (136-145); Total Protein, Blood 8.4 g/dL (6.4-8.2)
[2022-11-03 07:42] LABS: International Normalized Ratio 1.2; Prothrombin Time Results 12.5 Sec (9.7-11.5)
[2022-11-03 08:06] LABS: Bilirubin, Urine Neg (Neg); Blood, Urine Neg (Neg); Glucose Qualitative, Urine Neg (Neg); Ketones, Urine 1+ (Neg); Leukocyte Esterase, Urine Neg (Neg); Nitrite, Urine Neg (Neg); Protein, Urine Neg (Neg); Urobilinogen, Urine NORM (Normal)
[2022-11-03 08:09] LABS: Appearance, Urine Clear (Clear); Color, Urine Yellow (P-Yellow)
[2022-11-03 08:18] LABS: U Amphetamine Screen Not Detected; U Barbituate Screen Not Detected; U Benzodiazapine Screen DETECTED; U Buprenorphine Screen Not Detected; U Cannabinoids Screen DETECTED; U Cocaine Screen Not Detected; U Methadone Screen Not Detected; U Methamphetamine Screen Not Detected; U Opiates Screen DETECTED; U Oxycodone Screen Not Detected; U Phencyclidine Screen Not Detected; U Propoxyphene Screen Not Detected
[2022-11-03 08:38] LABS: Hematocrit 20.8 % (33.0-51.0); Hemoglobin 6.2 g/dL (11.5-16.0); Mean Corpuscular HGB Conc 29.8 g/dL (31.5-36.5); Mean Corpuscular Volume 71 fL (80-100); Mean Platelet Volume 8.9 fL (9.1-12.4); Platelet Count 368 K/mm3 (150-400); RDW Coefficient Variation 18.1 % (11.7-14.2); RDW Standard Deviation 45.6 fL (35.1-46.3); Red Blood Cell Count 2.95 M/mm3 (3.80-5.20); White Blood Cell Count 3.63 K/mm3 (4.00-11.30)
[2022-11-03 10:00] LABS: Magnesium, Blood 1.8 mg/dL (1.6-2.4); Phosphorus, Blood 2.3 mg/dL (2.5-4.9)
[2022-11-03 11:19] LABS: Hematocrit 21.9 % (33.0-51.0); Hemoglobin 6.5 g/dL (11.5-16.0)
--- NOTE | 2022-11-03 11:33 | NUR ---
TRANSFER TO PCU PATIENT TRANSFERRED TO PCU VIA WC PER PROVIDER REQUEST, PT EDUCATED ON REASON FOR TRANSFER, ALL PERSONAL POSSESSIONS MOVED WITH HER AT TIME OF TRANSFER.
--- NOTE | 2022-11-03 13:07 | NUR ---
ARRIVAL TO PCU/CARE ASSUMPTION Patient arrived from surgical floor via wheelchair and transfered to bed indepdently with a stand by at approx 1115. patient is alert and oriented x4, self/place/person/date, but forgets limitations. perrla. patient reports no pain, chest pain/pressure, or shortness of breath. see shift assessment for further detials. patient currently receiving one unit of blood. patient has protonix drip infusing that is continous. MD Bill to see patient this afternoon per report from surgical processor. Received bedside report. Patient hypertensive upon arrival to unit and this RN called MD and IV hydralzine ordered, see orders and vital signs. Plan of care is up to date. call light within reach with bed alarm on.
--- NOTE | 2022-11-03 17:10 | NUR ---
SHIFT SUMMARY MD Tolbert in to see patient and discussed plan of care. Per MD, patient able to have ice chips. MD George in to see patient and discussed plan of care. MD Bill in to see patient and discussed plan of care. Patient is to remain NPO to allow rest to gastrointestinal system. patient received two units of blood during this RN shift. patient uses call light appropriately, but is forgetful. patient neuro remains unchanged. patient reports adbonminal pain throughout this rns shift and has been medicated. patient blood pressure hypertensive, md george made aware and new orders have been placed. patient becomes short of breath with activity. plan of care is up to date.
[2022-11-03 18:11] LABS: Hematocrit 30.6 % (33.0-51.0)
[2022-11-03 22:55] LABS: Hematocrit 26.8 % (33.0-51.0); Hemoglobin 8.7 g/dL (11.5-16.0)
[2022-11-04] VITALS (7 sets, daily range): BP systolic 136–186; BP diastolic 78–94
[2022-11-04 05:03] LABS: BASOPHILS ABSOLUTE AUTO 0.03 K/mm3 (0.00-0.23); BASOPHILS PERCENT AUTO 1 % (0-2); EOSINOPHILS ABSOLUTE AUTO 0.15 K/mm3 (0.00-0.68); EOSINOPHILS PERCENT AUTO 4 % (0-6); Hematocrit 25.8 % (33.0-51.0); Hemoglobin 8.3 g/dL (11.5-16.0); IMMATURE GRAN ABSOLUTE AUTO 0.01 K/mm3 (0.00-0.10); IMMATURE GRAN PERCENT AUTO 0 % (0-1); LYMPHOCYTES ABSOLUTE AUTO 1.11 K/mm3 (0.84-5.20); LYMPHOCYTES PERCENT AUTO 27 % (21-46); MONOCYTES ABSOLUTE AUTO 0.36 K/mm3 (0.16-1.47); MONOCYTES PERCENT AUTO 9 % (4-13); Mean Corpuscular HGB 23.6 pg (26.0-34.0); Mean Corpuscular HGB Conc 32.2 g/dL (31.5-36.5); Mean Corpuscular Volume 73 fL (80-100); Mean Platelet Volume 8.7 fL (9.1-12.4); NEUTROPHILS ABSOLUTE AUTO 2.49 K/mm3 (1.96-9.15); NEUTROPHILS PERCENT AUTO 60 % (41-73); Platelet Count 333 K/mm3 (150-400); RDW Standard Deviation 52.9 fL (35.1-46.3); Red Blood Cell Count 3.52 M/mm3 (3.80-5.20); White Blood Cell Count 4.15 K/mm3 (4.00-11.30)
--- NOTE | 2022-11-04 05:35 | NUR ---
SHIFT SUMMARY A/OX3, FORGETFUL. DENIES CHEST PAIN/PRESSURE. TELE SR IN THE 80S. SPO2 >92% ON RA. PROTONIX GTT RUNNING. VSS, NO ACUTE CHANGES AT THIS TIME. BED IN LOWEST POSITION WITH CALL LIGHT IN REACH. WILL CONTINUE TO MONITOR AND REPORT TO ONCOMING RN.
[2022-11-04 06:04] LABS: Albumin, Blood 2.7 g/dL (3.4-5.0); Albumin/Globulin Ratio 0.8 (0.8-1.8); Bun/Creatinine Ratio 18.7 (12.0-20.0); Calcium, Blood 8.5 mg/dL (8.5-10.1); Creatinine, Blood 0.59 mg/dL (0.40-1.00); Globulin, Blood 3.6 g/dL (2.2-4.0); Potassium, Blood 2.8 mmol/L (3.5-5.5)
[2022-11-04 06:06] LABS: Total Protein, Blood 6.3 g/dL (6.4-8.2)
[2022-11-04 10:38] LABS: Hematocrit 27.7 % (33.0-51.0); Hemoglobin 8.9 g/dL (11.5-16.0)
--- NOTE | 2022-11-04 14:09 | NUR ---
ARRIVAL TO UNIT PT BROUGHT OVER FROM THE PCU BY BALAJI. PT ABLE TO MOVE FROM WHELLCHAIR TO BED WITH 1 PERSON ASST. PT ASKED FOR ANOTHER PILLOW AND SOME MORE BLANKETS. VITALS SIGNS TAKEN. BP WAS ELEVATED, MEDICATED PER EMAR. NO QUESTIONS AT THIS TIME. ICE WATER, BROTH AND JELLO GIVEN. CALL LIGHT WITHIN REACH.
--- NOTE | 2022-11-04 17:24 | NUR ---
SHIFT SUMMARY NO ACUTE CHANGES SINCE ARRIVAL TO UNIT. PT HAS BEEN SLEEPING. B/P CAME DOWN AFTER BEING MEDICATED PER EMAR. CALL LIGHT WITHIN REACH.
[2022-11-05 03:01] VITALS: BP 123/70
--- NOTE | 2022-11-05 05:19 | NUR ---
SHIFT SUMMARY VSS. PT SLEPT WEL T/O THE NIGHT. PT UP TO BAHTROOM WITH SBA, VOIDING W/O DIFFICULTY. NO BM'S NOTED THIS SHIFT, NO BLOOD NOTED PER RECTUM. PT TOLLERATING CLEAR DIET WELL, NO N/V NOTED. CONTINUOUS PROTNOIX INFUSION RUNNING. CIWA SCORES HAVE REMAINED <3. PT REPORTS NO SYMPTOMS OF WITHDRAWING. PT DID NOT REQUIRE ANY PAIN MEDICATION T/O THE NIGHT. NO ACUTE EVENTS NOTED. PLAN FOR PT TO ADVANCE DIET AND CONTINUE TO BE MONITORED FOR ONGOING BLEEDING. THE PATIENT IS CURRENTLY RESTING, IN NO DISTRESS, CALL LIGHT IN REACH
[2022-11-05 05:52] LABS: BASOPHILS ABSOLUTE AUTO 0.03 K/mm3 (0.00-0.23); BASOPHILS PERCENT AUTO 1 % (0-2); EOSINOPHILS ABSOLUTE AUTO 0.27 K/mm3 (0.00-0.68); EOSINOPHILS PERCENT AUTO 6 % (0-6); Hematocrit 28.1 % (33.0-51.0); IMMATURE GRAN ABSOLUTE AUTO 0.01 K/mm3 (0.00-0.10); IMMATURE GRAN PERCENT AUTO 0 % (0-1); LYMPHOCYTES ABSOLUTE AUTO 1.23 K/mm3 (0.84-5.20); LYMPHOCYTES PERCENT AUTO 29 % (21-46); MONOCYTES PERCENT AUTO 10 % (4-13); Mean Corpuscular HGB 23.8 pg (26.0-34.0); Mean Corpuscular Volume 74 fL (80-100); Mean Platelet Volume 8.8 fL (9.1-12.4); NEUTROPHILS ABSOLUTE AUTO 2.28 K/mm3 (1.96-9.15); NEUTROPHILS PERCENT AUTO 54 % (41-73); Platelet Count 360 K/mm3 (150-400); RDW Standard Deviation 55.1 fL (35.1-46.3); Red Blood Cell Count 3.78 M/mm3 (3.80-5.20); White Blood Cell Count 4.22 K/mm3 (4.00-11.30)
[2022-11-05 06:23] LABS: Albumin, Blood 2.7 g/dL (3.4-5.0); Albumin/Globulin Ratio 0.7 (0.8-1.8); Bilirubin, Total 0.8 mg/dL (0.1-1.0); Bun/Creatinine Ratio 12.9 (12.0-20.0); Calcium, Blood 8.9 mg/dL (8.5-10.1); Creatinine, Blood 0.7 mg/dL (0.40-1.00); Globulin, Blood 3.9 g/dL (2.2-4.0); Potassium, Blood 3.2 mmol/L (3.5-5.5); Total Protein, Blood 6.6 g/dL (6.4-8.2)
[2022-11-05 07:50] VITALS: BP 126/72
[2022-11-05 15:45] VITALS: BP 159/82
--- NOTE | 2022-11-05 16:34 | NUR ---
SUMMARY: PT ADMITTED FOR PERFED GASTRIC ULCER. A/O VSS. PT IS PASSING GAS, HAS HAD BM AND IS TOLERATING LIQ DIET. DIET ADVANCED TO FULL LIQ TONIGHT. PT HAS DENIED PAIN, NAUSEA. PROTONIX CONTINUES TO INFUSE AT 10ML/HR. NO SIGNS OF WITHDRAWAL TODAY. PLAN IS ADVANCE DIET AND POSSIBLE DC TOMORROW.
[2022-11-05 19:39] VITALS: BP 145/91
[2022-11-05 19:40] VITALS: BP 168/83
[2022-11-06 03:38] VITALS: BP 148/79
[2022-11-06 05:48] LABS: BASOPHILS ABSOLUTE AUTO 0.03 K/mm3 (0.00-0.23); BASOPHILS PERCENT AUTO 1 % (0-2); EOSINOPHILS ABSOLUTE AUTO 0.29 K/mm3 (0.00-0.68); EOSINOPHILS PERCENT AUTO 6 % (0-6); Hemoglobin 8.3 g/dL (11.5-16.0); IMMATURE GRAN ABSOLUTE AUTO 0.01 K/mm3 (0.00-0.10); IMMATURE GRAN PERCENT AUTO 0 % (0-1); LYMPHOCYTES ABSOLUTE AUTO 1.42 K/mm3 (0.84-5.20); LYMPHOCYTES PERCENT AUTO 29 % (21-46); MONOCYTES ABSOLUTE AUTO 0.44 K/mm3 (0.16-1.47); MONOCYTES PERCENT AUTO 9 % (4-13); Mean Corpuscular HGB 23.1 pg (26.0-34.0); Mean Corpuscular HGB Conc 30.7 g/dL (31.5-36.5); Mean Corpuscular Volume 75 fL (80-100); Mean Platelet Volume 8.8 fL (9.1-12.4); NEUTROPHILS ABSOLUTE AUTO 2.77 K/mm3 (1.96-9.15); NEUTROPHILS PERCENT AUTO 56 % (41-73); Platelet Count 295 K/mm3 (150-400); RDW Coefficient Variation 21.5 % (11.7-14.2); RDW Standard Deviation 58.2 fL (35.1-46.3); Red Blood Cell Count 3.59 M/mm3 (3.80-5.20); White Blood Cell Count 4.96 K/mm3 (4.00-11.30)
[2022-11-06 06:22] LABS: Albumin, Blood 2.6 g/dL (3.4-5.0); Albumin/Globulin Ratio 0.7 (0.8-1.8); Bilirubin, Total 0.6 mg/dL (0.1-1.0); Bun/Creatinine Ratio 19.4 (12.0-20.0); Calcium, Blood 8.5 mg/dL (8.5-10.1); Creatinine, Blood 0.67 mg/dL (0.40-1.00); Globulin, Blood 3.6 g/dL (2.2-4.0); Potassium, Blood 3.7 mmol/L (3.5-5.5); Total Protein, Blood 6.2 g/dL (6.4-8.2)
--- NOTE | 2022-11-06 06:38 | NUR ---
SHIFT SUMMARY NO ACUTE CHANGES NOTED THROUGH THE NIGHT, PT REMAINS A&O X4, VSS, ON RA, TOLERATING FULL LIQUIDS, NO NAUSEA OR PAIN REPORTED, EXTRA SM BM WITH PING TINGE TO THE TP NOTED, BS ACTIVE X4, NO OTHER CHANGES NOTED, CALL LIGHT IN REACH, WCTM & REPORT TO DAY RN.
[2022-11-06 08:25] VITALS: BP 157/89
--- NOTE | 2022-11-06 11:39 | NUR ---
DR SCHUSTER IN TO SEE PT.
--- NOTE | 2022-11-06 14:25 | NUR ---
PT BACK FROM IMAGING.
[2022-11-06 16:22] VITALS: BP 166/92
--- NOTE | 2022-11-06 17:06 | NUR ---
summary NO ACUTE CHANGES T/O SHIFT. PT REPORTED RUQ AND R FLANK PAIN TO DR SCHUSTER; CT ORDERED AND COMPLETED. PT TOLERATED WELL. TOLERATING FULL LIQUID DIET. INDEPENDENT IN ROOM. IV FLUIDS RUNNING PER ORDERS. PT STATES ATTEMPTING TO STAY AWAKE THIS AFTERNOON IN HOPES OF BEING ABLE TO SLEEP TONIGHT. CALL LIGHT IN REACH.
[2022-11-06 19:37] VITALS: BP 172/90
[2022-11-06 21:30] VITALS: BP 151/85
[2022-11-07 04:03] VITALS: BP 126/78
--- NOTE | 2022-11-07 05:57 | NUR ---
PATIENT REMAINS ALERT AND ORIENTED X1, CALLS TO MAKE NEEDS KNOWN. PLACED ON 1X STAND BY ASSIST CONCIDERING FALL HITORY, R SIDE WEAKNESS FROM PAST CVA'S, POTENTIAL FOR SIEZERE, PAIN AND LINES. PAIN AND HTN TREATED PER AUG 1X WITH GOOD REULTS. NO S/S OF BLEEDING. WILL CONTINUE TO MINITOR.
[2022-11-07 07:05] VITALS: BP 125/68
[2022-11-07 09:20] VITALS: BP 100/74
--- NOTE | 2022-11-07 09:56 | NUR ---
DISCHARGE WENT OVER DISCHARGE INSTRUCTIONS, PT VERBALIZED UNDERSTANDING. DC IV AND OBTAINED VS. PT LEFT WITH ALL BELONGINGS AND WAS ACCOMPANIED BY S/O. PT POLITELY DECLINED A WHEEL CHAIR AND WALKED TO CAR.
--- NOTE | 2022-11-07 10:08 | NUR ---
REVIEWED SN DOCUMENTATION TO THIS POINT. AN PIERRE RN, TAKING OVER SUPERVISION AND PT AND CAMILLE AGUIRRE.
[2022-11-07 11:11] LABS: Hematocrit 30.1 % (33.0-51.0); Hemoglobin 9.3 g/dL (11.5-16.0)
[2022-11-07 14:16] VITALS: BP 132/72
--- NOTE | 2022-11-07 17:49 | NUR ---
SHIFT SUMMARY NO ACUTE CHANGES, PT TOLERATED A SOFT DIET TODAY, DENIED N/V. WENT FOR A WALK WITH 1X ASSIST, TOLERATED WELL. MODERATE PAIN THAT WAS MANAGED WITH MEDICATION PER EMAR AND A K-PAD TO AFFECTED AREA. PT SITTING ON BED EATING DINNER, CALL LIGHT IN REACH.
[2022-11-07 18:54] VITALS: BP 160/85
[2022-11-08 04:17] VITALS: BP 145/95
[2022-11-08 04:49] LABS: Hematocrit 29.4 % (33.0-51.0)
--- NOTE | 2022-11-08 04:58 | NUR ---
NO ACUTE EVENTS OVERNIGHT
[2022-11-08 07:03] VITALS: BP 141/76
[2022-11-08] MEDS ORDERED: METO25ER PO (10:15)
[2022-11-08] MEDS ORDERED: PANT40 PO (10:20)
[2022-11-08] MEDS ORDERED: SUCR1 PO (10:20)
--- NOTE | 2022-11-08 11:50 | NUR ---
DISCHARGE SUMMARY A&O X4. VS WNL, O2 SAT >95% ON RA. ALL LINES REMOVED. TOLERATING ORAL FLUIDS/FOOD. AMBULATING/TOILETING INDEPENDENTLY. PAIN WITHIN TOLERABLE LIMITS PER PATIENT REPORT. EDUCATION PROVIDED, PATIENT VERBALIZED UNDERSTANDING. ALL PERSONAL ITEMS WITH PATIENT. DISCHARGED VIA WHEELCHAIR TO RIDE SERVICE.
== END 2022-11-08 12:30 | disposition home or self-care (01) | DRG 378 ==
LOC: ER 00:56 → SURS 08:38 → PCU 08:38 → SURS 09:42 → PCU 11:24 → SURS 11-04 14:13
PROVIDERS: Family Medicine; Student in an Organized Health Care Education/Training Program; ADMIT Internal Medicine
PROC: 30233N1 Transfusion of Nonautologous Red Blood Cells into Peripheral Vein, Percutaneous Approach (ICD-10-PCS; principal; 2022-11-03)
DX: K25.6 Chronic or unspecified gastric ulcer with both hemorrhage and perforation (principal); D62 Acute posthemorrhagic anemia; S22.088A Other fracture of T11-T12 vertebra, initial encounter for closed fracture; S22.41XA Multiple fractures of ribs, right side, initial encounter for closed fracture; Z68.1 Body mass index [BMI] 19.9 or less, adult; E87.6 Hypokalemia; F17.210 Nicotine dependence, cigarettes, uncomplicated; M54.16 Radiculopathy, lumbar region; G89.29 Other chronic pain; F10.20 Alcohol dependence, uncomplicated; K43.2 Incisional hernia without obstruction or gangrene; F12.10 Cannabis abuse, uncomplicated; R63.4 Abnormal weight loss; E83.39 Other disorders of phosphorus metabolism; M54.50 Low back pain, unspecified; K70.9 Alcoholic liver disease, unspecified; F41.1 Generalized anxiety disorder; G62.1 Alcoholic polyneuropathy; F13.10 Sedative, hypnotic or anxiolytic abuse, uncomplicated; F11.10 Opioid abuse, uncomplicated; I10 Essential (primary) hypertension; F41.8 Other specified anxiety disorders; R94.31 Abnormal electrocardiogram [ECG] [EKG]; G40.909 Epilepsy, unspecified, not intractable, without status epilepticus; W19.XXXA Unspecified fall, initial encounter; Z86.73 Personal history of transient ischemic attack (TIA), and cerebral infarction without residual deficits; Z90.49 Acquired absence of other specified parts of digestive tract; Z98.890 Other specified postprocedural states; Z88.0 Allergy status to penicillin; Z79.811 Long term (current) use of aromatase inhibitors; Z79.899 Other long term (current) drug therapy; Z91.81 History of falling; Z71.6 Tobacco abuse counseling; Y90.0 Blood alcohol level of less than 20 mg/100 ml; Z88.5 Allergy status to narcotic agent; Z79.2 Long term (current) use of antibiotics; Z96.642 Presence of left artificial hip joint
CPT/HCPCS: 36415; 36430; 71045; 74177; 80053; 81003; 83690; 83735; 84100; 84484; 85014; 85018; 85025; 85027; 85610; 85730; 86850; 86900; 86901; 86923; 87338; 93005; 93010; 96361; 96374-59; 96375; 96376; 99285-25; A9270; C9113; G0480; J0360; J1170; J1200; J3010; J3411; J3475; J3480; J7030; J7050; J7060; P9016; Q9967

== ENCOUNTER → 2022-11-25 | Outpatient (CLI) | payer OTHER ==
[~2022-11-25] MED LIST changes: +PANT40 PO; +SUCR1 PO
[2022-11-25 17:06] LABS: BASOPHILS ABSOLUTE AUTO 0.03 K/mm3 (0.00-0.23); BASOPHILS PERCENT AUTO 1 % (0-2); EOSINOPHILS ABSOLUTE AUTO 0.13 K/mm3 (0.00-0.68); EOSINOPHILS PERCENT AUTO 3 % (0-6); Hematocrit 31.9 % (33.0-51.0); Hemoglobin 9.9 g/dL (11.5-16.0); IMMATURE GRAN ABSOLUTE AUTO 0.01 K/mm3 (0.00-0.10); IMMATURE GRAN PERCENT AUTO 0 % (0-1); LYMPHOCYTES ABSOLUTE AUTO 1.55 K/mm3 (0.84-5.20); LYMPHOCYTES PERCENT AUTO 35 % (21-46); MONOCYTES ABSOLUTE AUTO 0.43 K/mm3 (0.16-1.47); MONOCYTES PERCENT AUTO 10 % (4-13); Mean Corpuscular HGB 23.6 pg (26.0-34.0); Mean Corpuscular Volume 76 fL (80-100); Mean Platelet Volume 9.4 fL (9.1-12.4); NEUTROPHILS ABSOLUTE AUTO 2.29 K/mm3 (1.96-9.15); NEUTROPHILS PERCENT AUTO 52 % (41-73); Platelet Count 312 K/mm3 (150-400); RDW Coefficient Variation 24.5 % (11.7-14.2); RDW Standard Deviation 64.9 fL (35.1-46.3); White Blood Cell Count 4.44 K/mm3 (4.00-11.30)
[2022-11-25 17:41] LABS: Bun/Creatinine Ratio 27.5 (12.0-20.0); Calcium, Blood 9.4 mg/dL (8.5-10.1); Creatinine, Blood 0.69 mg/dL (0.40-1.00); Potassium, Blood 4.3 mmol/L (3.5-5.5)
== END | disposition home or self-care (01) ==
LOC: LAB 14:16 → LAB SHORT 14:16
PROVIDERS: Nurse Practitioner Family
DX: D50.0 Iron deficiency anemia secondary to blood loss (chronic) (principal)
CPT/HCPCS: 80048; 85025

== ENCOUNTER 2023-01-29 06:06 | Day surgery (SDC) | payer OTHER | END 2023-01-29 08:50 | disposition home or self-care (01) | LOC: ORSCSDS 06:06 | PROC: 0DB68ZX Excision of Stomach, Via Natural or Artificial Opening Endoscopic, Diagnostic (ICD-10-PCS; principal; 2023-01-29) | DX: R10.9 Unspecified abdominal pain (principal); K25.9 Gastric ulcer, unspecified as acute or chronic, without hemorrhage or perforation; R93.3 Abnormal findings on diagnostic imaging of other parts of digestive tract; Z87.11 Personal history of peptic ulcer disease; I10 Essential (primary) hypertension; Z86.73 Personal history of transient ischemic attack (TIA), and cerebral infarction without residual deficits; Z79.899 Other long term (current) drug therapy ==

== ENCOUNTER 2023-03-13 13:48 | Emergency (ER) | payer OTHER ==
[~2023-03-13] VITALS: Ht 170.2 cm; Wt 54.4 kg
[2023-03-13 13:53] VITALS: BP 140/80
[2023-03-13] MEDS ORDERED: Percocet 5-3251 EACH PO (15:17)
== END 2023-03-13 15:35 | disposition home or self-care (01) ==
LOC: ER 13:48
DX: S22.32XA Fracture of one rib, left side, initial encounter for closed fracture (principal); W18.30XA Fall on same level, unspecified, initial encounter; Z88.0 Allergy status to penicillin; Z88.5 Allergy status to narcotic agent; Z79.899 Other long term (current) drug therapy; I10 Essential (primary) hypertension; F17.210 Nicotine dependence, cigarettes, uncomplicated
CPT/HCPCS: 71100; 99284-25; A9270

== ENCOUNTER 2023-04-13 15:10 | Emergency (ER) | payer OTHER ==
[~2023-04-13] VITALS: Ht 165.1 cm; Wt 63.5 kg
[~2023-04-13 15:10] MED LIST changes: +Percocet 5-3251 EACH PO
[2023-04-13 15:41] LABS: BASOPHILS ABSOLUTE AUTO 0.05 K/mm3 (0.00-0.23); BASOPHILS PERCENT AUTO 1 % (0-2); EOSINOPHILS ABSOLUTE AUTO 0.04 K/mm3 (0.00-0.68); EOSINOPHILS PERCENT AUTO 1 % (0-6); Hematocrit 34.6 % (33.0-51.0); IMMATURE GRAN ABSOLUTE AUTO 0.01 K/mm3 (0.00-0.10); IMMATURE GRAN PERCENT AUTO 0 % (0-1); LYMPHOCYTES ABSOLUTE AUTO 2.27 K/mm3 (0.84-5.20); LYMPHOCYTES PERCENT AUTO 35 % (21-46); MONOCYTES ABSOLUTE AUTO 0.43 K/mm3 (0.16-1.47); MONOCYTES PERCENT AUTO 7 % (4-13); Mean Corpuscular HGB 32.2 pg (26.0-34.0); Mean Corpuscular HGB Conc 34.7 g/dL (31.5-36.5); Mean Corpuscular Volume 93 fL (80-100); Mean Platelet Volume 9.4 fL (9.1-12.4); NEUTROPHILS ABSOLUTE AUTO 3.75 K/mm3 (1.96-9.15); NEUTROPHILS PERCENT AUTO 57 % (41-73); Platelet Count 239 K/mm3 (150-400); RDW Coefficient Variation 14.6 % (11.7-14.2); RDW Standard Deviation 50.3 fL (35.1-46.3); Red Blood Cell Count 3.73 M/mm3 (3.80-5.20); White Blood Cell Count 6.55 K/mm3 (4.00-11.30)
[2023-04-13 15:59] LABS: Albumin, Blood 3.4 g/dL (3.4-5.0); Albumin/Globulin Ratio 0.8 (0.8-1.8); Bilirubin, Total 1.4 mg/dL (0.1-1.0); Bun/Creatinine Ratio 18.4 (12.0-20.0); Calcium, Blood 8.8 mg/dL (8.5-10.1); Creatinine, Blood 0.65 mg/dL (0.40-1.00); Globulin, Blood 4.1 g/dL (2.2-4.0); Potassium, Blood 3.4 mmol/L (3.5-5.5); Total Protein, Blood 7.5 g/dL (6.4-8.2)
[2023-04-13] MEDS ORDERED: OXAYDO5 M1 PO (18:49)
[2023-04-13] MEDS ORDERED: BENZ100A PO (19:12)
[2023-04-13 19:19] VITALS: BP 179/94
== END 2023-04-13 19:20 | disposition home or self-care (01) ==
LOC: ER 15:10
PROVIDERS: Student in an Organized Health Care Education/Training Program
DX: S42.251A Displaced fracture of greater tuberosity of right humerus, initial encounter for closed fracture (principal); S42.211A Unspecified displaced fracture of surgical neck of right humerus, initial encounter for closed fracture; E87.6 Hypokalemia; M79.601 Pain in right arm; R05.9 Cough, unspecified; R06.02 Shortness of breath; S22.41XK Multiple fractures of ribs, right side, subsequent encounter for fracture with nonunion; I10 Essential (primary) hypertension; F17.210 Nicotine dependence, cigarettes, uncomplicated; Z88.0 Allergy status to penicillin; Z88.6 Allergy status to analgesic agent; Z79.899 Other long term (current) drug therapy; W19.XXXA Unspecified fall, initial encounter; X58.XXXD Exposure to other specified factors, subsequent encounter
CPT/HCPCS: 71045; 73030; 73070; 73100; 73200; 80053; 83880; 84484; 85025; 93005; 93010; 96374; 99285-25; A9270; J3010

== ENCOUNTER 2023-07-24 08:40 | Emergency (ER) | payer OTHER ==
[~2023-07-24] VITALS: Ht 170.2 cm; Wt 56.7 kg
[~2023-07-24 08:40] MED LIST changes: +OXAYDO5 M1 PO
[2023-07-24] MEDS ORDERED: Thiamine HCl 100 MG Tab PO ONE (08:50)
[2023-07-24] MEDS ORDERED: Folic Acid 1 MG TAB PO ONE (08:50)
[2023-07-24] MEDS ORDERED: NS 1,000 ML IV SCH (08:50)
[2023-07-24 09:45] LABS: BASOPHILS ABSOLUTE AUTO 0.05 K/mm3 (0.00-0.23); BASOPHILS PERCENT AUTO 1 % (0-2); EOSINOPHILS ABSOLUTE AUTO 0.08 K/mm3 (0.00-0.68); EOSINOPHILS PERCENT AUTO 2 % (0-6); Hematocrit 36.5 % (33.0-51.0); Hemoglobin 12.3 g/dL (11.5-16.0); IMMATURE GRAN ABSOLUTE AUTO 0.01 K/mm3 (0.00-0.10); IMMATURE GRAN PERCENT AUTO 0 % (0-1); LYMPHOCYTES ABSOLUTE AUTO 1.92 K/mm3 (0.84-5.20); LYMPHOCYTES PERCENT AUTO 46 % (21-46); MONOCYTES ABSOLUTE AUTO 0.38 K/mm3 (0.16-1.47); MONOCYTES PERCENT AUTO 9 % (4-13); Mean Corpuscular HGB 32.9 pg (26.0-34.0); Mean Corpuscular HGB Conc 33.7 g/dL (31.5-36.5); Mean Corpuscular Volume 98 fL (80-100); Mean Platelet Volume 8.9 fL (9.1-12.4); NEUTROPHILS ABSOLUTE AUTO 1.74 K/mm3 (1.96-9.15); NEUTROPHILS PERCENT AUTO 42 % (41-73); Platelet Count 191 K/mm3 (150-400); RDW Coefficient Variation 15.4 % (11.7-14.2); RDW Standard Deviation 55.5 fL (35.1-46.3); Red Blood Cell Count 3.74 M/mm3 (3.80-5.20); White Blood Cell Count 4.18 K/mm3 (4.00-11.30)
[2023-07-24 10:07] LABS: Albumin, Blood 3.5 g/dL (3.4-5.0); Albumin/Globulin Ratio 0.8 (0.8-1.8); Bilirubin, Total 0.4 mg/dL (0.1-1.0); Calcium, Blood 9.3 mg/dL (8.5-10.1); Creatinine, Blood 0.55 mg/dL (0.40-1.00); Globulin, Blood 4.2 g/dL (2.2-4.0); Potassium, Blood 3.4 mmol/L (3.5-5.5); Total Protein, Blood 7.7 g/dL (6.4-8.2)
[2023-07-24 10:32] LABS: Influenza A, PCR NEGATIVE (NEGATIVE); Influenza B, PCR NEGATIVE (NEGATIVE); Resp Syncytial Virus, PCR NEGATIVE (NEGATIVE); SARS-Cov-2 (COVID-19) PCR, MMC NEGATIVE (NEGATIVE)
[2023-07-24] MEDS ORDERED: PRED20 PO (11:09)
[2023-07-24 12:00] VITALS: BP 148/86
== END 2023-07-24 13:14 | disposition home or self-care (01) ==
LOC: ER 08:40
PROVIDERS: Emergency Medicine
DX: J44.1 Chronic obstructive pulmonary disease with (acute) exacerbation (principal); F10.129 Alcohol abuse with intoxication, unspecified; Y90.8 Blood alcohol level of 240 mg/100 ml or more; F17.210 Nicotine dependence, cigarettes, uncomplicated; Z88.0 Allergy status to penicillin; Z88.5 Allergy status to narcotic agent; Z79.899 Other long term (current) drug therapy; I10 Essential (primary) hypertension
CPT/HCPCS: 0241U; 71045; 80053; 85025; 96360; 99284-25; A9270; J7030